=== PATIENT | male | born 1940 | race Caucasian/White ===

== ENCOUNTER → 2018-07-21 | Outpatient (CLI) | payer OTHER ==
[~2018-07-21] MED LIST: ASPI81TA28 PO; B-COCAP20 PO; LPT20 PO; THIA50TA3 PO
== END | disposition home or self-care (01) ==
LOC: C.LAB 17:43
DX: Z02.83 Encounter for blood-alcohol and blood-drug test (principal)

== ENCOUNTER 2022-01-22 20:04 | Inpatient (IN) ==
[2022-01-22] MEDS ORDERED: SODIUM CHLORIDE 0.9% 1000ML 1,000 ML IV STA (20:33)
[2022-01-22] MEDS ORDERED: ONDANSETRON INJ 2 MG/ML 2 ML VIAL IV STA (20:33)
[2022-01-22] MEDS ORDERED: MoRPHine SULFATE 4 MG/ML 1 ML CARP\\VIAL IV PRN (20:33)
--- NOTE | 2022-01-22 20:55 | Emergency Department Note ---
Impression & Plan Acute left flank pain ED Provider Note NAME: MARY VILLEGAS AGE: 81 SEX: M : 1940 ARRIVES VIA: Walk-In INFORMANT: Patient, the patient's significant other ED PROVIDER(S): Terence Dimas DO CHIEF COMPLAINT: Back pain HPI: The patient is an 81-year-old male who presented to the emergency department with his significant other for evaluation of back pain. The patient states he started having worsening back pain this morning. He was seen in our facility this morning. The patient had a work-up which included laboratory studies as well as radiographic studies. The patient states he has a Lidoderm patch on. He has been taking his outpatient medication. He has had very severe pain especially over the last 2 hours. The patient's not been seen by his primary care physician for the symptoms. He denies having any recent trauma. He denies having any hematuria. He states the pain does come up into his middle back but mostly located in his lower back. He denies having any abdominal pain. He denies having any testicular pain. He denies having any chest pain. He states at times the pain will come up underneath his rib cage. ROS: See above HPI for pertinent positives & negatives. A total of 10 systems reviewed and were otherwise negative. PAST MEDICAL HISTORY: See Below PAST SURGICAL HISTORY: See Below FAMILY HISTORY: See Below SOCIAL HISTORY: See Below HOME MEDICATIONS: See Below ALLERGIES: See Below VITALS: See Below PHYSICAL EXAMINATION: GENERAL: The patient is awake and alert. The patient is very anxious appearing and appears to be in significant pain. EYES: The conjunctivae are clear. The pupils are round and reactive. EARS, NOSE, MOUTH AND THROAT: The nose is without any evidence of any deformity. NECK: The neck is nontender and supple. RESPIRATORY: Normal respiratory effort is noted there is no evidence of wheezing rhonchi or rales CARDIOVASCULAR: Regular rate and rhythm noted there no murmurs rubs or gallops normal S1 normal S2. GASTROINTESTINAL: The abdomen is soft. Abdomen is nontender. BACK: No midline tenderness was noted. Range of motion was intact but elicits very severe pain. The patient has palpable tenderness over the left flank. Th ere is no signs of rash. MUSCULOSKELETAL/EXTREMITIES: There is no evidence of gross deformity full range of motion is noted in the hips and shoulders. SKIN: Pedal edema was noted bilaterally. Skin was warm and dry. NEUROLOGIC: Patient is awake alert and oriented x3. Strength was symmetric in both lower extremities. MEDICAL DECISION MAKING: The patient is an 81-year-old male who presented to the emergency department for an evaluation of left flank pain. The patient presented to our emergency department earlier for similar complaints. He was able to be discharged to home but returned tonight because of ongoing and worsening pain. The patient was treated with pain medication in the emergency department. I discussed the patient's laboratory and radiographic studies with him. Ultimately he was not significantly improved. Any attempts to try to ambulate the patient had very severe pain again. For this reason I [facility] this [facility] have agreed to evaluate the patient in the emergency department for further management and disposition. The patient does appear to have more musculoskeletal pain. He had no abdominal tenderness on physical exam. I did review the patient's earlier radiographic studies including CT the abdomen and pelvis. Triage Nursing notes reviewed. Prior medical records reviewed Vital Signs: reviewed and remarkable for no significant abnormalities Differential diagnosis: Musculoskeletal, disc herniation, fracture, metastatic disease, cord compression, discitis, sciatica, cauda equina, infection, aortic disease, renal colic, gastrointestinal, as well as other pathologies. ER treatment provided: See below Diagnostics interpreted by me: ECG: EKG was obtained in the emergency department. My interpretation is normal sinus rhythm at 87 bpm. There is no ectopy. There was no acute ST segment abnormalities noted. This was compared to a tracing from May 201999. No significant changes were noted. Cardiac Monitoring: An order was placed for continuous cardiac monitoring. The monitor shows a rate of 88 bpm with sinus rhythm. Laboratory studies: As stated above and show below. Imaging studies: See below Consultation(s): I discussed this case with Dr. Alexander who is [facility]. Past Med/Surg History Medical History HLD (hyperlipidemia) Surgical History No pertinent past surgical history Social History Smoking Status: Current some day smoker Tobacco Type: Cigarettes Hx Alcohol Use: No Hx Substance Use: No Preferred Language: Slovenian Current Living Situation: Spouse current occupational status: retired Feels Safe at Home: Yes Allergies Allergies Allergy/AdvReac Type Severity Reaction Status Date / Time buckwheat Allergy Severe throat Verified 01/22/22 09:35 swells Penicillins Allergy Unknown hives Unverified 01/22/22 09:35 Home Meds Home Medications Medication Instructions Recorded Confirmed aspirin 81 mg tablet,delayed 81 mg PO QAM 01/22/22 01/22/22 release atorvastatin 20 mg tablet 20 mg PO QAM 01/22/22 01/22/22 umeclidinium 62.5 mcg-vilanterol 1 inh INHALATION HS 01/22/22 01/22/22 25 mcg/actuation powdr for inhalation (Anoro Ellipta) Previous Rx's Medication Instructions Recorded lidocaine 5 % topical patch 1 patch TOP DAILY PRN #15 ea 01/22/22 prednisone 20 mg tablet See Rx Instructions .ROUTE 01/22/22 .COMPLEX 4 Days #6 tab Results & Data (ED) Vital Signs Vital Signs - 24 hr 01/22/22 20:07 01/22/22 20:26 01/22/22 20:55 Temperature 36.3 C L Temperature Source Temporal Artery Scan Pulse Rate 99 H 88 Pulse Rate [Apical] 98 H Pulse Rhythm Regular Pulse Rhythm [Apical] Regular Pulse Strength [Apical] Normal Respiratory Rate 18 16 18 Respiratory Effort / Characteristics Non-Labored Respiratory Depth Normal Respiratory Pattern Regular Blood Pressure 129/67 Blood Pressure [Left Arm] 107/73 Blood Pressure Mean 87 Blood Pressure Mean [Left Arm] 84 Blood Pressure Position Sitting Blood Pressure Position [Left Arm] Lying Pulse Oximetry 99 94 91 Oxygen Delivery Method Room Air Room Air Room Air Sepsis Recent Fever Within 48 Hours No Sepsis New/Unexplained Change in Mental Status No Sepsis Action Taken by Nursing No Action Required Home Medications Current Medication List: was personally reviewed by me Laboratory Data Attestation: I reviewed the patient's lab results. Result diagrams: 01/22/22 20:57 01/22/22 20:57 Lab Results 01/22/22 01/22/22 01/22/22 Range/Units 20:57 20:57 20:57 WBC 5.78 (4.8-10.8) K/uL RBC 3.99 L (4.7-6.1) M/uL Hgb 13.9 L (14.0-18.0) g/dL Hct 39.1 L (42-52) % MCV 98.0 (80-100) fL MCH 34.8 H (25-34) pg MCHC 35.5 (32-36) g/dL RDW Std Deviation 45.6 (36.4-46.3) fL RDW Coeff of Manpreet 12.7 (11.5-14.5) % Plt Count 239 (130-400) K/uL MPV 8.9 (7.4-10.4) fL Immature Gran % (Auto) 0.2 % Neut % (Auto) 88.5 % Lymph % (Auto) 9.9 % [place] % (Auto) 1.4 % Eos % (Auto) 0.0 % Baso % (Auto) 0.0 % Neut # (Auto) 5.12 (1.4-6.5) K/uL Lymph # (Auto) 0.57 L (1.2-3.4) K/uL [place] # (Auto) 0.08 L (0.11-0.59) K/uL Eos # (Auto) 0.00 (0-0.5) K/uL Baso # (Auto) 0.00 (0-0.2) K/uL Immature Gran # (Auto) 0.01 (0.00-0.02) K/uL PT 9.9 (9.0-12.0) Seconds INR 1.0 (0.9-1.1) APTT 20.5 L (21.0-31.0) Seconds PTT Ratio 0.8 Sodium 136 (136-145) mmol/L Potassium 4.4 (3.5-5.1) mmol/L Chloride 106 (98-107) mmol/L Carbon Dioxide 20 L (21-32) mmol/L Anion Gap 10 (3-11) BUN 19 (6-23) mg/dl Creatinine 1.23 (0.6-1.4) mg/dl Est Cr Clr Drug Dosing 48.5 ml/min Est GFR ( Amer) 63.9 ml/min Est GFR (Non-Af Amer) 55.1 ml/min BUN/Creatinine Ratio 15.4 (10-20) Glucose 151 H (70-99(Fasting)) mg/dl Calcium 9.1 (8.5-10.1) mg/dl Total Bilirubin 0.4 D (0.2-1.0) mg/dl AST 17 (13-39) U/L ALT 14 (7-52) U/L Alkaline Phosphatase 73 (34-104) U/L Troponin I < 0.03 (0-0.04) ng/ml Total Protein 6.5 (6.0-8.3) gm/dl Albumin 3.7 (3.4-5.0) gm/dl Globulin 2.8 (2.5-4.0) gm/dl Albumin/Globulin Ratio 1.3 (0.9-2) Lipase 32 (11-82) U/L Administered Medications Morphine Sulfate (Morphine Sulfate 4 Mg/Ml 1 Ml Carp\Vial) 4 mg IV Q15M PRN PRN Reason: Pain Stop: 02/05/22 20:32 Last Admin: 01/22/22 21:01 Dose: 4 mg Documented by: [id number] Discontinued Medications Sodium Chloride (Nss 1000ml) 1,000 mls @ 999 mls/hr IV .Q1H1M STA Stop: 01/22/22 21:33 Last Infusion: 01/22/22 22:10 Dose: 0 mls/hr Documented by: [id number] Admin: 01/22/22 21:01 Dose: 999 mls/hr Documented by: [id number] Ondansetron HCl (Ondansetron Inj 2 Mg/Ml 2 Ml Vial) 4 mg IV NOW STA Stop: 01/22/22 20:34 Last Admin: 01/22/22 21:01 Dose: 4 mg Documented by: [id number] Imaging Data Radiologist's Impression: Chest X-Ray 01/22/22 20:33 XR chest 1V portable HISTORY: Atypical chest pain. COMPARISON: Chest CT 09/19/2016. FINDINGS: No pneumothorax. No pleural effusions. The heart is normal in size. There are low lung volumes. The upper lung zones are clear. No evidence for pulmonary edema. Mild interstitial thickening at the lung bases. This is most pronounced medially. This is similar to the prior chest CT in therefore may be chronic. There is a mildly displaced left lateral eighth rib fracture. Degenerative changes noted within the shoulders. There is superior subluxation of the left humeral head suggesting chronic rotator cuff injury. IMPRESSION: 1. Mildly displaced lateral eighth rib fracture. No pneumothorax. 2. Mild interstitial thickening at the lung bases. This is likely chronic. A low-grade interstitial pneumonitis could also have a similar appearance in the appropriate clinical setting. ACT 112: Negative or not required by law. Electronically signed by: John Kidd M.D. 01/22/2022 9:06 PM KUB X-Ray 01/22/22 20:33 KUB HISTORY: Generalized abdominal pain COMPARISON: Abdomen and pelvis CT 01/22/2022. FINDINGS: The bowel gas pattern is unremarkable. There are no dilated loops of small bowel to suggest an obstruction. No renal calculi. No ureteral calculi. No pneumoperitoneum or pneumatosis. Contrast within the bladder from the prior CT examination. There are small bladder diverticula present. Vascular calcifications are noted. IMPRESSION: No evidence for bowel obstruction. ACT 112: Negative or not required by law. Electronically signed by: John Kidd M.D. 01/22/2022 9:03 PM Discharge Plan Visit Data Chief Complaint: Abdominal Pain Stated Complaint: SEVERE PAIN IN LT SIDE OF ABD ED Provider: Terence Dimas Discharge Problem: Acute left flank pain Patient Disposition: Being Evaluated by Hospitalist Forms Stand Alone Forms: My [facility] Prescriptions Prescriptions: No Action atorvastatin 20 mg tablet 20 mg PO QAM RF: 0 aspirin [Aspir-81] 81 mg Tablet,Delayed Release (Dr/Ec) 81 mg PO QAM RF: 0 Anoro Ellipta 62.5-25 mcg/actuation blister with device 1 inh INHALATION HS RF: 0 lidocaine 5 % adhesive patch,medicated 1 patch TOP DAILY PRN (Reason: pain) Qty: 15 RF: 0 prednisone 20 mg tablet See Rx Instructions .ROUTE .COMPLEX 4 Days Qty: 6 RF: 0 Referrals Referrals: Watson Bowen MD [Primary Care Provider] -
--- NOTE | 2022-01-22 21:04 | XRay Report ---
KUB HISTORY: Generalized abdominal pain COMPARISON: Abdomen and pelvis CT 01/22/2022. FINDINGS: The bowel gas pattern is unremarkable. There are no dilated loops of small bowel to suggest an obstruction. No renal calculi. No ureteral calculi. No pneumoperitoneum or pneumatosis. Contrast within the bladder from the prior CT examination. There are small bladder diverticula present. Vascu lar calcifications are noted. IMPRESSION: No evidence for bowel obstruction. ACT 112: Negative or not required by law. Electronically signed by: John Kidd M.D. 01/22/2022 9:03 PM
--- NOTE | 2022-01-22 21:07 | XRay Report ---
XR chest 1V portable HISTORY: Atypical chest pain. COMPARISON: Chest CT 09/19/2016. FINDINGS: No pneumothorax. No pleural effusions. The heart is normal in size. There are low lung volu mes. The upper lung zones are clear. No evidence for pulmonary edema. Mild interstitial thickening at the lung bases. This is most pronounced medially. This is similar to the prior chest CT in therefore may be chronic. There is a mildly displaced left lateral eighth rib fracture. Degenerative changes n oted within the shoulders. There is superior subluxation of the left humeral head suggesting chronic rotator cuff injury. IMPRESSION: 1. Mildly displaced lateral eighth rib fracture. No pneumothorax. 2. Mild interstitial thickening at the lung bases. This is likely chronic. A low-grade interstitial p neumonitis could also have a similar appearance in the appropriate clinical setting. ACT 112: Negative or not required by law. Electronically signed by: John Kidd M.D. 01/22/2022 9:06 PM
[2022-01-22 21:18] LABS: Hematocrit (blood only) 39.1 % (42-52); Hemoglobin 13.9 g/dL (14.0-18.0); Immature Granulocytes # (auto) 0.01 K/uL (0.00-0.02); Immature Granulocytes % (auto) 0.2 %; Lymphocytes # (auto) 0.57 K/uL (1.2-3.4); Lymphocytes % (auto) 9.9 %; Mean Corpuscular Hemoglobin 34.8 pg (25-34); Mean Corpuscular Hgb Conc 35.5 g/dL (32-36); Mean Platelet Volume 8.9 fL (7.4-10.4); Monocytes # (auto) 0.08 K/uL (0.11-0.59); Monocytes % (auto) 1.4 %; Neutrophils # (auto) 5.12 K/uL (1.4-6.5); Neutrophils % (auto) 88.5 %; Platelet Count 239 K/uL (130-400); RDW Coefficient of Variation 12.7 % (11.5-14.5); RDW Standard Deviation 45.6 fL (36.4-46.3); Red Blood Count 3.99 M/uL (4.7-6.1); White Blood Count 5.78 K/uL (4.8-10.8)
[2022-01-22 21:30] LABS: Partial Thromboplastin Ratio 0.8; Partial Thromboplastin Time 20.5 Seconds (21.0-31.0); Prothrombin Time 9.9 Seconds (9.0-12.0)
[2022-01-22 21:37] LABS: Alanine Aminotransferase 14 U/L (7-52); Albumin Globulin Ratio 1.3 (0.9-2); Albumin Level 3.7 gm/dl (3.4-5.0); Alkaline Phosphatase 73 U/L (34-104); Anion Gap 10 (3-11); Aspartate Aminotransferase 17 U/L (13-39); BUN Creatinine Ratio 15.4 (10-20); Bilirubin,Total 0.4 mg/dl (0.2-1.0); Blood Urea Nitrogen 19 mg/dl (6-23); Calcium 9.1 mg/dl (8.5-10.1); Carbon Dioxide 20 mmol/L (21-32); Chloride 106 mmol/L (98-107); Creatinine Clr Calc Pharmacy 48.5 ml/min; Est GFR (African American) 63.9 ml/min; Est GFR (Non-African American) 55.1 ml/min; Globulin 2.8 gm/dl (2.5-4.0); Glucose 151 mg/dl (70-99(Fasting)); Lipase 32 U/L (11-82); Potassium 4.4 mmol/L (3.5-5.1); Sodium 136 mmol/L (136-145); Total Protein 6.5 gm/dl (6.0-8.3)
[2022-01-22 21:39] LABS: Troponin I < 0.03 ng/ml (0-0.04)
[2022-01-22 23:08] LABS: Appearance Urine Clear (Clear); Bilirubin Urine Negative (Negative); Blood Urine Negative (Negative); Color Urine Yellow; Glucose Urine UA Negative (Negative); Ketones Urine Trace (Negative); Leukocyte Esterase Urine Negative (Negative); Nitrite Urine Negative (Negative); Protein Urine Negative (Negative); Specific Gravity Urine > 1.045 (1.000-1.030); Urobilinogen Urine Negative (Negative); pH Urine 5.5 (4.5-7.5)
[2022-01-23] MEDS ORDERED: KETOROLAC TROMETHAMINE 15 MG/ML VIAL IV ONE (00:12)
--- NOTE | 2022-01-23 00:12 | History & Physical Report ---
Date of Service January 23, 2022 Assessment & Plan (1) Left rib fracture: Plan: COPD, baseline wheezing on exam hyperlipidemia on statin Rx Steroid-induced hyperglycemia rule out DM Ongoing tobacco abuse OBS GMF Analgesia Lidoderm patch on left rib fracture Incentive spirometry Check hemoglobin A1c DC steroid course from ER visit yesterday as left-sided flank pain complaints not caused by spinal pathology. Nicotine patch as needed DVT prophylaxis per Lovenox subcu Full code Text document was generated using hulu voice recognition software. It may contain grammatical or spelling errors. Kindly contact undersigned for clarification of any documentation item in question. History of Present Illness Chief Complaint: Pain under the ribs going to the back Primary Care Provider: Watson Bowen MD History obtained from patient and records. Medical history significant for COPD, hyperlipidemia, ongoing tobacco abuse. 2 nights ago, patient noted sudden onset achy left-sided under the rib pain going to the back somewhat pleuritic. No leg radiation/weakness as per patient.Usual smoker's cough symptoms. No recollection of recent trauma. Patient seen at the ER yesterday morning. CT abdomen pelvis unremarkable. Patient discharged on lidocaine patch and prednisone course for acute left flank pain. Patient returned to ER for worsening symptoms. Intractable discomfort at the ER. 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 Allergies Allergy/AdvReac Type Severity Reaction Status Date / Time buckwheat Allergy Severe throat Verified 01/22/22 09:35 swells Penicillins Allergy Unknown hives Unverified 01/22/22 09:35 Home Medications Medication Instructions Recorded Confirmed Type aspirin 81 mg tablet,delayed 81 mg PO QAM 01/22/22 01/22/22 History release atorvastatin 20 mg tablet 20 mg PO QAM 01/22/22 01/22/22 History lidocaine 5 % topical patch 1 patch TOP DAILY PRN #15 ea 01/22/22 01/22/22 Rx prednisone 20 mg tablet See Rx Instructions .ROUTE 01/22/22 01/22/22 Rx .COMPLEX 4 Days #6 tab umeclidinium 62.5 mcg-vilanterol 1 inh INHALATION HS 01/22/22 01/22/22 History 25 mcg/actuation powdr for inhalation (Anoro Ellipta) Past Med/Surg History Medical History HLD (hyperlipidemia) Surgical History No pertinent past surgical history Social History Smoking Status: Current every day smoker Tobacco Type: Cigarettes Second Hand Exposure: Yes; Do You Dip or Chew Tobacco: No; Tobacco Cessation Education Requested by Patient: Yes Hx Alcohol Use: Yes Alcohol type: beer Hx Substance Use: No Preferred Language: [place]an Communication Ability: [facility] Signal Repairer Required: No Beliefs That Will Affect Care: None Current Living Situation: Spouse current occupational status: retired Other Information That Helps Us Care for You: No Feels Safe at Home: Yes Safety Concerns: Feels Safe At This Time Assistive Devices: Cane Review of Systems Review of Systems: As per HPI, all 10 systems reviewed, all other ROS negative Physical Exam Physical Exam: GENERAL: uncomfortable, obese, hard of hearing, no respiratory distress SKIN: Normal color, warm HEENT: [place] palpebral conjunctivae, no ptosis, moist buccal mucosa NECK : Supple, no tenderness CHEST : Decreased breath sounds, diffuse expiratory wheezes, left lateral chest wall tenderness HEART : RRR, no obvious murmurs ABDOMEN: Some distention, nontender EXTREMITIES : No LE swelling/tenderness, no other conspicuous deformities noted NEUROLOGIC : Coherent, no facial asymmetry, hard of hearing, no other gross focality Results & Data Results & Data ([facility]) Vital Signs (Past 12 Hours) Vital Signs Temp Pulse Pulse Resp BP BP Pulse Ox 01/22/22 23:29 94 H 18 138/77 91 01/22/22 22:04 18 98 01/22/22 20:55 88 18 91 01/22/22 20:26 98 H 16 107/73 94 01/22/22 20:07 36.3 C L 99 H 18 129/67 99 Laboratory Results Laboratory Results WBC 5.78 K/uL (4.8-10.8) 01/22/22 20:57 RBC 3.99 M/uL (4.7-6.1) L 01/22/22 20:57 Hgb 13.9 g/dL (14.0-18.0) L 01/22/22 20:57 Hct 39.1 % (42-52) L 01/22/22 20:57 MCV 98.0 fL (80-100) 01/22/22: MCH 34.8 pg (25-34) H 01/22/22: MCHC 35.5 g/dL (32-36) 01/22/22:57 RDW Std Deviation 45.6 fL (36.4-46.3) 01/22/22: RDW Coeff of Manpreet 12.7 % (11.5-14.5) 01/22/22: Plt Count 239 K/uL (130-400) 01/22/22 20: MPV 8.9 fL (7.4-10.4) 01/22/22: Immature Gran % (Auto) 0.2 % 01/22/22: Neut % (Auto) 88.5 % 01/22/22: Lymph % (Auto) 9.9 % 01/22/22: [place] % (Auto) 1.4 % 01/22/22: Eos % (Auto) 0.0 % 01/22/22:57 Baso % (Auto) 0.0 % 01/22/22:57 Neut # (Auto) 5.12 K/uL (1.4-6.5) 01/22/22: Lymph # (Auto) 0.57 K/uL (1.2-3.4) L 01/22/22:57 [place] # (Auto) 0.08 K/uL (0.11-0.59) L 01/22/22: Eos # (Auto) 0.00 K/uL (0-0.5) 01/22/22:57 Baso # (Auto) 0.00 K/uL (0-0.2) 01/22/22: Immature Gran # (Auto) 0.01 K/uL (0.00-0.02) 01/22/22:57 PT 9.9 Seconds (9.0-12.0) 01/22/22 20:57 INR 1.0 (0.9-1.1) 01/22/22: APTT 20.5 Seconds (21.0-31.0) L 01/22/22 20:57 PTT Ratio 0.8 01/22/22 20:57 Sodium 136 mmol/L (136-145) 01/22/22 20:57 Potassium 4.4 mmol/L (3.5-5.1) 01/22/22 20:57 Chloride 106 mmol/L (98-107) 01/22/22 20:57 Carbon Dioxide 20 mmol/L (21-32) L 01/22/22 20:57 Anion Gap 10 (3-11) 01/22/22 20:57 BUN 19 mg/dl (6-23) 01/22/22 20:57 Creatinine 1.23 mg/dl (0.6-1.4) 01/22/22 20:57 Est Cr Clr Drug Dosing 48.5 ml/min 01/22/22 20:57 Est GFR ( Amer) 63.9 ml/min 01/22/22 20:57 Est GFR (Non-Af Amer) 55.1 ml/min 01/22/22 20:57 BUN/Creatinine Ratio 15.4 (10-20) 01/22/22 20:57 Glucose 151 mg/dl (70-99(Fasting)) H 01/22/22 20:57 Calcium 9.1 mg/dl (8.5-10.1) 01/22/22 20:57 Total Bilirubin 0.4 mg/dl (0.2-1.0) D 01/22/22 20:57 AST 17 U/L (13-39) 01/22/22 20:57 ALT 14 U/L (7-52) 01/22/22 20:57 Alkaline Phosphatase 73 U/L (34-104) 01/22/22 20:57 Troponin I < 0.03 ng/ml (0-0.04) 01/22/22 20:57 Total Protein 6.5 gm/dl (6.0-8.3) 01/22/22 20:57 Albumin 3.7 gm/dl (3.4-5.0) 01/22/22 20:57 Globulin 2.8 gm/dl (2.5-4.0) 01/22/22 20:57 Albumin/Globulin Ratio 1.3 (0.9-2) 01/22/22 20:57 Lipase 32 U/L (11-82) 01/22/22 20:57 Urine Color Yellow 01/22/22 22:07 Urine Appearance Clear (Clear) 01/22/22 22:07 Urine pH 5.5 (4.5-7.5) 01/22/22 22:07 Ur Specific [place] > 1.045 (1.000-1.030) H 01/22/22 22:07 Urine Protein Negative (Negative) 01/22/22 22:07 Urine Glucose (UA) Negative (Negative) 01/22/22 22:07 Urine Ketones Trace (Negative) H 01/22/22 22:07 Urine Blood Negative (Negative) 01/22/22 22:07 Urine Nitrite Negative (Negative) 01/22/22 22:07 Urine Bilirubin Negative (Negative) 01/22/22 22:07 Urine Urobilinogen Negative (Negative) 01/22/22 22:07 Ur Leukocyte Esterase Negative (Negative) 01/22/22 22:07 SARS-CoV-2, RNA, NAAT NEGATIVE (NEGATIVE) 01/22/22 22:57 Impressions Chest X-Ray 01/22/22 20:33 XR chest 1V portable HISTORY: Atypical chest pain. COMPARISON: Chest CT 09/19/2016. FINDINGS: No pneumothorax. No pleural effusions. The heart is normal in size. There are low lung volumes. The upper lung zones are clear. No evidence for pulmonary edema. Mild interstitial thickening at the lung bases. This is most pronounced medially. This is similar to the prior chest CT in therefore may be chronic. There is a mildly displaced left lateral eighth rib fracture. Degenerative changes noted within the shoulders. There is superior subluxation of the left humeral head suggesting chronic rotator cuff injury. IMPRESSION: 1. Mildly displaced lateral eighth rib fracture. No pneumothorax. 2. Mild interstitial thickening at the lung bases. This is likely chronic. A low-grade interstitial pneumonitis could also have a similar appearance in the appropriate clinical setting. ACT 112: Negative or not required by law. Electronically signed by: John Kidd M.D. 01/22/2022 9:06 PM KUB X-Ray 01/22/22 20:33 KUB HISTORY: Generalized abdominal pain COMPARISON: Abdomen and pelvis CT 01/22/2022. FINDINGS: The bowel gas pattern is unremarkable. There are no dilated loops of small bowel to suggest an obstruction. No renal calculi. No ureteral calculi. No pneumoperitoneum or pneumatosis. Contrast within the bladder from the prior CT examination. There are small bladder diverticula present. Vascular calcifications are noted. IMPRESSION: No evidence for bowel obstruction. ACT 112: Negative or not required by law. Electronically signed by: John Kidd M.D. 01/22/2022 9:03 PM Diagnostic Findings EKG as per my interpretation rate 85, NSR, LAD, LAFB, no ischemia
[2022-01-23] MEDS ORDERED: KETOROLAC TROMETHAMINE 15 MG/ML VIAL ONE (00:15)
[2022-01-23] MEDS ORDERED: LIDOCAINE 5% 1 PATCH TD SCH (00:30)
[2022-01-23] MEDS ORDERED: MoRPHine SULFATE 4 MG/ML 1 ML CARP\\VIAL IV PRN (00:34)
[2022-01-23] MEDS ORDERED: PROMETHAZINE HCL 12.5 MG in SODIUM CHLORIDE 0.9% 50 ML IV PRN (00:34)
[2022-01-23] MEDS ORDERED: ACETAMINOPHEN 325 MG TAB PO PRN (00:39)
[2022-01-23] MEDS ORDERED: LIDOCAINE 5% 1 PATCH TD ONE (00:41)
[2022-01-23] MEDS ORDERED: IPRATROPIUM BROMIDE NEB SOLN 0.02% 2.5 ML VIAL INH PRN (03:02)
[2022-01-23] MEDS ORDERED: LEVALBUTEROL 1.25MG/0.5ML NEB INH PRN (03:02)
[2022-01-23] MEDS ORDERED: XOPENEX/ATROVENT 1.25mg/0.5MG NEB COMBO NEB PRN (03:02)
[2022-01-23 03:39] LABS: Basophils # (auto) 0.01 K/uL (0-0.2); Basophils % (auto) 0.1 %; Hematocrit (blood only) 38.1 % (42-52); Hemoglobin 13.1 g/dL (14.0-18.0); Immature Granulocytes # (auto) 0.02 K/uL (0.00-0.02); Immature Granulocytes % (auto) 0.2 %; Lymphocytes # (auto) 0.99 K/uL (1.2-3.4); Lymphocytes % (auto) 9.8 %; Mean Corpuscular Hemoglobin 33.9 pg (25-34); Mean Corpuscular Hgb Conc 34.4 g/dL (32-36); Mean Corpuscular Volume 98.7 fL (80-100); Mean Platelet Volume 8.9 fL (7.4-10.4); Monocytes # (auto) 0.66 K/uL (0.11-0.59); Monocytes % (auto) 6.5 %; Neutrophils # (auto) 8.46 K/uL (1.4-6.5); Neutrophils % (auto) 83.4 %; Platelet Count 211 K/uL (130-400); RDW Coefficient of Variation 12.8 % (11.5-14.5); RDW Standard Deviation 46.1 fL (36.4-46.3); Red Blood Count 3.86 M/uL (4.7-6.1); White Blood Count 10.14 K/uL (4.8-10.8)
[2022-01-23 04:01] LABS: Calcium 8.7 mg/dl (8.5-10.1); Creatinine Clr Calc Pharmacy 62.5 ml/min; Est GFR (African American) 77.3 ml/min; Est GFR (Non-African American) 66.7 ml/min; Potassium 4.5 mmol/L (3.5-5.1)
[2022-01-23] MEDS ORDERED: XOPENEX/ATROVENT 1.25mg/0.5MG NEB COMBO NEB STA (04:46)
[2022-01-23] MEDS ORDERED: IPRATROPIUM BROMIDE NEB SOLN 0.02% 2.5 ML VIAL INH STA (05:05)
[2022-01-23] MEDS ORDERED: LEVALBUTEROL 1.25MG/0.5ML NEB INH STA (05:05)
[2022-01-23 07:02] LABS: Estimated Average Glucose 117 mg/dl; Hemoglobin A1C 5.7 % (4.5-5.6)
[2022-01-23] MEDS: ATORVASTATIN 20 MG TAB PO SCH (08:13)
[2022-01-23] MEDS: ASPIRIN 81 MG ECTAB PO SCH (08:13)
[2022-01-23] MEDS: ENOXAPARIN INJ 40 MG/0.4 ML SYR SQ SCH (08:13)
--- NOTE | 2022-01-23 10:28 | Electrocardiogram Report ---
Test Reason : Blood Pressure : / mmHG Vent. Rate : 087 BPM Atrial Rate : 087 BPM P-R Int : 176 ms QRS Dur : 090 ms QT Int : 352 ms P-R-T Axes : 092 -13 040 degrees QTc Int : 423 ms Normal sinus rhythm Normal ECG When compared with ECG of 20-MAY-2000 11:15, No significant change was found Confirmed by Terence Ortiz ([id number]) on 01/23/2022 10:28:14 AM Referred By: REFERRED SELF Confirmed By:Terence Ortiz
[2022-01-23] MEDS: ACETAMINOPHEN 500 MG TAB PO SCH ×2 (13:06→22:17)
[2022-01-23] MEDS: oxyCODONE HCL IR 5 MG TAB (IMMEDIATE RELEASE) PO PRN ×2 (13:06→17:03)
--- NOTE | 2022-01-23 14:28 | Hospitalist Progress Note ---
Date of Service January 23, 2022 Assessment & Plan (1) Left rib fracture: Plan: Chest pain secondary to left eighth rib fracture that is mildly displaced. Continue scheduled Tylenol 1000 mg every 8 hours and oxycodone as needed. Lidocaine patch is not working so we will DC this now. Given alcohol withdrawal we will also start gabapentin 300 mg p.o. twice daily which may alleviate some of the need for narcotic therapy and help with pain control Continue supportive care. (2) Alcohol abuse: Plan: Heavy alcohol user reporting 5-6 drinks every other day. He is tremulous and cannot seem to get comfortable sitting down and standing up and changing positions frequently. Will give 1 dose of Ativan IV 0.5 mg and follow with alcohol withdrawal sliding scale. Daily thiamine and folate ordered. (3) Alcohol withdrawal: Plan: Ativan as needed (4) Smoking: Plan: Nicotine patch as needed, counseled to quit and is in contemplative phase. (5) COPD (chronic obstructive pulmonary disease): Plan: Chronic, stable, no acute wheezing. Of note steroids were given to him from the ER but have been stopped. Continue Anoro Ellipta (6) DVT prophylaxis: Plan: Lovenox Full code Disposition-to home when pain is more controlled. Margaret Padron DO [facility] hospitalist Admission and Anticipated Discharge Date Admission Date: January 23, 2022 Subjective 81 yo M presented with acute left chest wall pain secondary to a displaced lateral eighth rib fracture. No pneumothorax was evident on chest imaging. Patient reports having 6 brennen and Cokes and tripped over a litter box when he went outside to "take a leak" Patient reports drinking alcohol every other day on average Patient is tremulous and appears slightly anxious and pain is uncontrolled. He recently had 5 mg of oxycodone and 1000 mg of Tylenol, reporting some improvement in the last hour He is visibly unable to get comfortable He reports lidocaine patch is not helping him. Review of Systems 2 Review of Systems: All other systems reviewed and negative except as indicated above. Physical Exam Physical Exam: CONSTITUTIONAL: WNWD, vitals as above, in moderate distress with movement. EYES: normal conjunctivae, no scleral icterus, ENT: external ear and nose normal,MMM NECK: trachea midline, RESPIRATORY: clear to auscultation bilaterally, no crackles, rales or wheezes, normal respiratory effort CARDIOVASCULAR: regular rate and rhythm, S1 and 2 heard without murmurs, gallops or rubs, no JVD, no peripheral edema, CHEST: inspection of chest was normal GASTROINTESTINAL: soft, nontender, ND, no guarding MUSCULOSKELETAL: strength 5/5 throughout, head is normocephalic and atraumatic, chest wall tenderness on the left lateral side to palpation. SKIN: warm and dry, NEUROLOGIC: CN 2-12 grossly intact, normal cognition, normal speech, no tremor PSYCHIATRIC: alert cooperative and oriented to person, place and time. Results & Data Results & Data ([facility]) Vital Signs (Past 12 Hours) Vital Signs Temp Pulse Pulse Pulse Resp BP BP 01/23/22 08:00 36.7 C 84 18 128/64 01/23/22 05:49 81 20 01/23/22 03:00 36.5 C 80 80 18 132/80 01/23/22 02:44 36.7 C 91 H 20 114/81 Pulse Ox 01/23/22 08:00 90 01/23/22 05:49 94 01/23/22 03:00 91 01/23/22 02:44 95 Laboratory Results Short CBC 01/22/22 01/23/22 Range/Units 20:57 03:20 WBC 5.78 10.14 (4.8-10.8) K/uL Hgb 13.9 L 13.1 L (14.0-18.0) g/dL Hct 39.1 L 38.1 L (42-52) % Plt Count 239 211 (130-400) K/uL BMP 01/22/22 01/23/22 20:57 03:20 Sodium 136 138 Potassium 4.4 4.5 Chloride 106 108 H Carbon Dioxide 20 L 22 BUN 19 21 Creatinine 1.23 1.05 Glucose 151 H 125 H Calcium 9.1 8.7 Cardiac Enzymes 01/22/22 Range/Units 20:57 Troponin I < 0.03 (0-0.04) ng/ml Liver Function 01/22/22 Range/Units 20:57 Total Bilirubin 0.4 D (0.2-1.0) mg/dl AST 17 (13-39) U/L ALT 14 (7-52) U/L Alkaline Phosphatase 73 (34-104) U/L Albumin 3.7 (3.4-5.0) gm/dl Urine 01/22/22 Range/Units 22:07 Urine Color Yellow Urine Appearance Clear (Clear) Urine pH 5.5 (4.5-7.5) Ur Specific [place] > 1.045 H (1.000-1.030) Urine Protein Negative (Negative) Urine Glucose (UA) Negative (Negative) Medications Administered Current Inpatient Medications Acetaminophen (Acetaminophen 500 Mg Tab) 1,[address] [facility] Stop: 02/22/22 13:59 Last Admin: 01/23/22 13:06 Dose: 1,000 mg Documented by: Aspirin (Aspirin 81 Mg Ectab) 81 mg PO [facility] Stop: 02/22/22 08:59 Last Admin: 01/23/22 08:13 Dose: 81 mg Documented by: Atorvastatin Calcium (Atorvastatin 20 Mg Tab) 20 mg PO [facility] Stop: 02/22/22 08:59 Last Admin: 01/23/22 08:13 Dose: 20 mg Documented by: Enoxaparin Sodium (Enoxaparin Inj 40 Mg/0.4 Ml Syr) 40 mg SQ [facility] Stop: 02/22/22 08:59 Last Admin: 01/23/22 08:13 Dose: 40 mg Documented by: Promethazine HCl 12.5 mg/ (Sodium Chloride) 50.5 mls @ 202 mls/hr IV Q6H PRN PRN Reason: Nausea And Vomiting Stop: 02/22/22 00:33 Ipratropium [place] (Ipratropium [place] Neb Soln 0.02% 2.5 Ml Vial) 0.5 mg INH Q4H PRN PRN Reason: SOB, wheezing Stop: 02/22/22 03:01 Levalbuterol HCl (Levalbuterol 1.25mg/0.5ml Neb) 1.25 mg INH Q4H PRN PRN Reason: SOB, wheezing Stop: 02/22/22 03:01 Lidocaine (Lidocaine 5% 1 Patch) 1 patch TD [facility] Stop: 02/22/22 00:29 Last Admin: 01/23/22 01:35 Dose: 1 patch Documented by: Miscellaneous (Remove Lidoderm Patch) 1 ea N/A DAILY@2100 [facility] Stop: 02/22/22 20:59 Morphine Sulfate (Morphine Sulfate 4 Mg/Ml 1 Ml Carp\\Vial) 4 mg IV Q4H PRN PRN Reason: Pain Stop: 02/06/22 00:33 Oxycodone HCl (Oxycodone Hcl Ir 5 Mg Tab (Immediate Release)) 5 mg PO Q4H PRN PRN Reason: Pain Stop: 02/06/22 00:33 Last Admin: 01/23/22 13:06 Dose: 5 mg Documented by: Umeclidinium/Vilanterol (Umeclidinium/Vilanterol 62.5/25mcg 7 Puffs/Inhaler) 1 puffs INH HS [facility] Stop: 02/22/22 20:59
[2022-01-23] MEDS ORDERED: LORazepam 2 MG/1 ML VIAL IV STA (14:45)
[2022-01-23] MEDS ORDERED: LORazepam 1 MG TAB PO PRN (14:46)
[2022-01-23] MEDS ORDERED: THIAMINE HCL 100 MG in SYRINGE 9 ML IV ONE (14:47)
[2022-01-23] MEDS ORDERED: FOLIC ACID 1 MG in SYRINGE 9.8 ML IV ONE (14:47)
[2022-01-23] MEDS ORDERED: ATIVAN IV ALCOHOL WITHDRAWL IV PRN (20:14)
[2022-01-23] MEDS ORDERED: LORazepam 2 MG/1 ML VIAL IV PRN (20:14)
[2022-01-23] MEDS ORDERED: GABAPENTIN 1200MG ALCOHOL WITHDRAWAL LOAD PO STA (20:14)
[2022-01-23] MEDS ORDERED: GABAPENTIN 600 MG TAB PO ONE (20:30)
[2022-01-23] MEDS: LORazepam 2 MG/1 ML VIAL IV PRN ×2 (20:40→22:11)
--- NOTE | 2022-01-23 20:51 | Communication Note ---
Date of Service: January 23, 2022 Code kandy called after patient noted to be agitated, combative. Confused from alcohol withdrawal as per RN. AP PCU transfer for alcohol withdrawal
[2022-01-23] MEDS ORDERED: GABAPENTIN 300 MG CAP PO SCH (21:00)
[2022-01-23] MEDS: UMECLIDINIUM/VILANTEROL 62.5/25MCG 7 PUFFS/INHALER INH SCH (22:17)
[2022-01-23] MEDS ORDERED: cloNIDine HCL 0.1 MG TAB PO ONE (23:10)
[2022-01-23] MEDS ORDERED: LABETALOL HCL IV 5 MG/ML 20ML IV STA (23:15)
[2022-01-23] MEDS ORDERED: hydrALAZINE HCL 20 MG/ML VIAL IV STA (23:20)
[2022-01-24] MEDS ORDERED: KETOROLAC TROMETHAMINE 15 MG/ML VIAL IV ONE (01:18)
[2022-01-24] MEDS: ACETAMINOPHEN 500 MG TAB PO SCH (05:20)
[2022-01-24] MEDS ORDERED: GABAPENTIN 600 MG TAB PO SCH ×2 (06:00→22:00)
[2022-01-24 06:49] LABS: Hematocrit (blood only) 39.3 % (42-52); Hemoglobin 13.4 g/dL (14.0-18.0); Mean Corpuscular Hemoglobin 33.8 pg (25-34); Mean Corpuscular Hgb Conc 34.1 g/dL (32-36); Mean Platelet Volume 8.9 fL (7.4-10.4); Platelet Count 223 K/uL (130-400); RDW Coefficient of Variation 12.8 % (11.5-14.5); RDW Standard Deviation 46.1 fL (36.4-46.3); Red Blood Count 3.97 M/uL (4.7-6.1); White Blood Count 10.11 K/uL (4.8-10.8)
[2022-01-24 07:13] LABS: BUN Creatinine Ratio 22.6 (10-20); Calcium 8.3 mg/dl (8.5-10.1); Est GFR (African American) 95.8 ml/min; Est GFR (Non-African American) 82.7 ml/min; Magnesium 1.9 mg/dl (1.7-2.4); Phosphorus 3.1 mg/dl (2.5-4.9); Potassium 3.7 mmol/L (3.5-5.1)
[2022-01-24] MEDS: THIAMINE HCL 100 MG TAB PO SCH (08:55)
[2022-01-24] MEDS: FOLIC ACID 1 MG TAB PO SCH (08:56)
[2022-01-24] MEDS: ASPIRIN 81 MG ECTAB PO SCH (08:56)
[2022-01-24] MEDS: ENOXAPARIN INJ 40 MG/0.4 ML SYR SQ SCH (08:56)
[2022-01-24] MEDS: ATORVASTATIN 20 MG TAB PO SCH (08:56)
[2022-01-24] MEDS: LORazepam 2 MG/1 ML VIAL IV PRN ×4 (09:55→23:15)
--- NOTE | 2022-01-24 10:19 | Hospitalist Progress Note ---
Date of Service January 24, 2022 Assessment & Plan (1) Left rib fracture: Plan: Chest pain secondary to left eighth rib fracture that is mildly displaced. Continue scheduled Tylenol 1000 mg every 8 hours and hold oxycodone to avoid polypharmacy.. Lidocaine patch is not working so this was stopped. Changed gabapentin to 100mg PO TID (when more awake and able to tolerate PO) to help with pain. Titrate up weekly as needed if tolerated. (2) Alcohol abuse: Plan: Heavy alcohol user reporting 5-6 drinks every other day. He is tremulous and cannot seem to get comfortable sitting down and standing up and changing positions frequently. Currently sedated with medication because of continued combativeness and withdrawal. Daily thiamine and folate ordered. Stop gabapentin taper in this 81 yo man as the Ativan is working very well and want to avoid polypharmacy at this time. Also holding oxycodone until more awake and alert. OK with small dose of scheduled gabapentin as above. (3) Alcohol withdrawal: Plan: Ativan as needed, see plan above. (4) Smoking: Plan: Nicotine patch as needed, counseled to quit and is in contemplative phase. (5) COPD (chronic obstructive pulmonary disease): Plan: Chronic, stable, no acute wheezing. Of note steroids were given to him from the ER but have been stopped. Continue Anoro Ellipta (6) DVT prophylaxis: Plan: Lovenox Full code Disposition-to home when pain is more controlled and he is mentating well and through his withdrawal. Margaret Padron DO [facility] Hospitalist Admission and Anticipated Discharge Date Admission Date: January 23, 2022 Subjective 81 yo M presented with acute left chest wall pain secondary to a displaced lateral eighth rib fracture. No pneumothorax was evident on chest imaging. Overnight patient had a more severe withdrawal and IV ativan was given Gabapentin taper was started Patient is currently obtunded and unresponsive except to stir somewhat to sternal rub as he just received 3mg IV of Ativan for combative behavior with staff Review of Systems Review of Systems: Cannot obtain as patient is obtunded Physical Exam Physical Exam: CONSTITUTIONAL: WNWD, vitals as above,obtunded EYES: normal conjunctivae, no scleral icterus, ENT: external ear and nose normal,MMM NECK: trachea midline, RESPIRATORY: clear to auscultation bilaterally, no crackles, rales or wheezes, normal respiratory effort CARDIOVASCULAR: regular rate and rhythm, S1 and 2 heard without murmurs, gallops or rubs, no JVD, no peripheral edema, CHEST: inspection of chest was normal GASTROINTESTINAL: soft, nontender, ND, no guarding MUSCULOSKELETAL: cannot assess 2/2 mental status SKIN: warm and dry, NEUROLOGIC: obtunded Results & Data Results & Data ([facility]) Vital Signs (Past 12 Hours) Vital Signs Temp Pulse Pulse Resp BP BP Pulse Ox 01/24/22 07:54 93 01/24/22 07:43 36.6 C 68 18 136/77 95 01/24/22 07:09 68 01/24/22 02:44 35.6 C L 84 20 105/80 97 01/24/22 01:17 111/75 01/24/22 00:15 105/77 01/23/22 22:59 36.3 C L 79 20 185/101 H 97 Laboratory Results Short CBC 01/24/22 Range/Units 06:13 WBC 10.11 (4.8-10.8) K/uL Hgb 13.4 L (14.0-18.0) g/dL Hct 39.3 L (42-52) % Plt Count 223 (130-400) K/uL BMP 01/24/22 06:13 Sodium 138 Potassium 3.7 Chloride 107 Carbon Dioxide 26 BUN 19 Creatinine 0.84 Glucose 86 Calcium 8.3 L Medications Administered Current Inpatient Medications Aspirin (Aspirin 81 Mg Ectab) 81 mg [facility] Stop: 02/22/22 08:59 Last Admin: 01/24/22 08:56 Dose: 81 mg Documented by: Atorvastatin Calcium (Atorvastatin 20 Mg Tab) 20 mg PO [facility] Stop: 02/22/22 08:59 Last Admin: 01/24/22 08:56 Dose: 20 mg Documented by: Enoxaparin Sodium (Enoxaparin Inj 40 Mg/0.4 Ml Syr) 40 mg SQ [facility]AM [facility] Stop: 02/22/22 08:59 Last Admin: 01/24/22 08:56 Dose: 40 mg Documented by: Folic Acid (Folic Acid 1 Mg Tab) 1 mg PO QAM [facility] Stop: 02/23/22 08:59 Last Admin: 01/24/22 08:56 Dose: 1 mg Documented by: Gabapentin (Gabapentin 100 Mg Cap) 100 mg PO TID [facility] Stop: 02/23/22 13:59 Acetaminophen (Ofirmev) 1,000 mg in 100 mls @ 400 mls/hr IV Q8H [facility] Stop: 01/27/22 10:14 Ipratropium [place] (Ipratropium [place] Neb Soln 0.02% 2.5 Ml Vial) 0.5 mg INH Q4H PRN PRN Reason: SOB, wheezing Stop: 02/22/22 03:01 Levalbuterol HCl (Levalbuterol 1.25mg/0.5ml Neb) 1.25 mg INH Q4H PRN PRN Reason: SOB, wheezing Stop: 02/22/22 03:01 Lorazepam (Lorazepam 2 Mg/1 Ml Vial) 1 mg IV UD PRN; Protocol PRN Reason: EtOH Withdrawl AWSS Score 6,7 Stop: 02/22/22 20:13 Lorazepam (Lorazepam 2 Mg/1 Ml Vial) 2 mg IV UD PRN; Protocol PRN Reason: EtOH Withdrawl AWSS Score 8,9 Stop: 02/22/22 20:13 Last Admin: 01/23/22 22:11 Dose: 2 mg Documented by: Lorazepam (Lorazepam 2 Mg/1 Ml Vial) 3 mg IV ONCE PRN; Protocol PRN Reason: EtOH Withdrawl AWSS Score >=10 Stop: 02/22/22 20:13 Last Admin: 01/24/22 09:55 Dose: 3 mg Documented by: Oxycodone HCl (Oxycodone Hcl Ir 5 Mg Tab (Immediate Release)) 5 mg PO Q4H PRN PRN Reason: Pain Stop: 02/06/22 00:33 Last Admin: 01/23/22 17:03 Dose: 5 mg Documented by: Thiamine HCl (Thiamine Hcl 100 Mg Tab) 100 mg PO QAM [facility] Stop: 02/23/22 08:59 Last Admin: 01/24/22 08:55 Dose: 100 mg Documented by: Umeclidinium/Vilanterol (Umeclidinium/Vilanterol 62.5/25mcg 7 Puffs/Inhaler) 1 puffs INH HS [facility] Stop: 02/22/22 20:59 Last Admin: 01/23/22 22:17 Dose: Not Given Documented by:
[2022-01-24] MEDS: ACETAMINOPHEN 1,000 MG/100 ML VIAL IV SCH ×2 (11:38→20:11)
[2022-01-24] MEDS: GABAPENTIN 100 MG CAP PO SCH ×2 (15:56→20:32)
[2022-01-24] MEDS: UMECLIDINIUM/VILANTEROL 62.5/25MCG 7 PUFFS/INHALER INH SCH (20:32)
[2022-01-25] MEDS: LORazepam 2 MG/1 ML VIAL IV PRN ×2 (00:55→03:29)
[2022-01-25] MEDS: ACETAMINOPHEN 1,000 MG/100 ML VIAL IV SCH ×3 (03:30→20:43)
[2022-01-25] MEDS: FOLIC ACID 1 MG TAB PO SCH (09:36)
[2022-01-25] MEDS: GABAPENTIN 100 MG CAP PO SCH (09:36)
[2022-01-25] MEDS: ASPIRIN 81 MG ECTAB PO SCH (09:36)
[2022-01-25] MEDS: ATORVASTATIN 20 MG TAB PO SCH (09:36)
[2022-01-25] MEDS: ENOXAPARIN INJ 40 MG/0.4 ML SYR SQ SCH (09:36)
[2022-01-25] MEDS: THIAMINE HCL 100 MG TAB PO SCH (09:36)
--- NOTE | 2022-01-25 10:50 | Hospitalist Progress Note ---
Date of Service January 25, 2022 Assessment & Plan (1) Left rib fracture: Plan: Chest pain secondary to left eighth rib fracture that is mildly displaced. Continue scheduled Tylenol 1000 mg every 8 hours and hold oxycodone to avoid polypharmacy.. Lidocaine patch is not working so this was stopped. Changed gabapentin to 100mg PO TID (when more awake and able to tolerate PO) to help with pain. Currently not able to tolerate PO so not taking. Titrate up weekly as needed if tolerated. (2) Alcohol abuse: Plan: Heavy alcohol user reporting 5-6 drinks every other day. He was tremulous and unable to get comfortable sitting down and standing up and changing positions frequently. Currently sedated with medication because of continued combativeness and withdrawal. Daily thiamine and folate ordered-will switch to IV now. Stop gabapentin taper in this 81 yo man as the Ativan is working very well and want to avoid polypharmacy at this time. Also holding oxycodone until more awake and alert. OK with small dose of scheduled gabapentin as above once tolerating PO again. (3) Alcohol withdrawal: Plan: actively withdrawing. 12mg IV Ativan given overnight total. Discussed the plan with current bedside nurses regarding cautions and expectations. Cont to monitor closely. (4) Smoking: Plan: Nicotine patch as needed, counseled to quit and is in contemplative phase. (5) COPD (chronic obstructive pulmonary disease): Plan: Chronic, stable, no acute wheezing. Of note steroids were given to him from the ER but have been stopped. Continue Anoro Ellipta (6) DVT prophylaxis: Plan: Lovenox Full code Disposition-to home when pain is more controlled and he is mentating well and through his withdrawal. Margaret Padron DO [facility] Hospitalist Admission and Anticipated Discharge Date Admission Date: January 23, 2022 Subjective 81 yo M presented with acute left chest wall pain secondary to a displaced lateral eighth rib fracture. No pneumothorax was evident on chest imaging. Now with worsening alcohol withdrawal delirium. Overnight patient had a more severe withdrawal and IV ativan was given again He has received a total of 12mg IV since 1830 last evening. remains on Tylenol 1000mg IV q8H for known pain from underlying rib fracture. Patient is currently obtunded and unresponsive except to stir somewhat Review of Systems Review of Systems: Cannot obtain as patient is obtunded Physical Exam Physical Exam: CONSTITUTIONAL: WNWD, vitals as above,obtunded EYES: normal conjunctivae, no scleral icterus, ENT: external ear and nose normal,MMM NECK: trachea midline, RESPIRATORY: clear to auscultation bilaterally, no crackles, rales or wheezes, normal respiratory effort CARDIOVASCULAR: regular rate and rhythm, S1 and 2 heard without murmurs, gallops or rubs, no JVD, no peripheral edema, CHEST: inspection of chest was normal GASTROINTESTINAL: soft, nontender, ND, no guarding MUSCULOSKELETAL: cannot assess 2/2 mental status SKIN: warm and dry, NEUROLOGIC: obtunded Results & Data Results & Data ([facility]) Vital Signs (Past 12 Hours) Vital Signs Temp Pulse Pulse Pulse Resp BP BP 01/25/22 07:49 36.6 C 80 17 128/96 01/25/22 05:28 36.4 C L 86 20 132/106 H 01/25/22 03:54 36.2 C L 82 23 168/117 H 01/25/22 03:03 36.4 C L 94 H 20 168/113 H 01/25/22 00:42 36.5 C 90 16 163/100 H 01/24/22 23:00 35.7 C L 95 H 20 176/116 H Pulse Ox 01/25/22 07:49 96 01/25/22 05:28 01/25/22 03:54 92 01/25/22 03:03 01/25/22 00:42 01/24/22 23:00 92 Medications Administered Current Inpatient Medications Aspirin (Aspirin 81 Mg Ectab) 81 mg PO [facility] Stop: 02/22/22 08:59 Last Admin: 01/25/22 09:36 Dose: 81 mg Documented by: Atorvastatin Calcium (Atorvastatin 20 Mg Tab) 20 mg PO [facility] Stop: 02/22/22 08:59 Last Admin: 01/25/22 09:36 Dose: 20 mg Documented by: Enoxaparin Sodium (Enoxaparin Inj 40 Mg/0.4 Ml Syr) 40 mg SQ [facility] Stop: 02/22/22 08:59 Last Admin: 01/25/22 09:36 Dose: 40 mg Documented by: Folic Acid (Folic Acid 1 Mg Tab) 1 mg PO [facility] Stop: 02/23/22 08:59 Last Admin: 01/25/22 09:36 Dose: 1 mg Documented by: Gabapentin (Gabapentin 100 Mg Cap) 100 mg PO TID [facility] Stop: 02/23/22 13:59 Last Admin: 01/25/22 09:36 Dose: 100 mg Documented by: Acetaminophen (Ofirmev) 1,000 mg in 100 mls @ 400 mls/hr IV Q8H [facility] Stop: 01/27/22 11:29 Last Infusion: 01/25/22 03:55 Dose: Infused Documented by: Ipratropium [place] (Ipratropium [place] Neb Soln 0.02% 2.5 Ml Vial) 0.5 mg INH Q4H PRN PRN Reason: SOB, wheezing Stop: 02/22/22 03:01 Levalbuterol HCl (Levalbuterol 1.25mg/0.5ml Neb) 1.25 mg INH Q4H PRN PRN Reason: SOB, wheezing Stop: 02/22/22 03:01 Lorazepam (Lorazepam 2 Mg/1 Ml Vial) 1 mg IV UD PRN; Protocol PRN Reason: EtOH Withdrawl AWSS Score 6,7 Stop: 02/22/22 20:13 Lorazepam (Lorazepam 2 Mg/1 Ml Vial) 2 mg IV UD PRN; Protocol PRN Reason: EtOH Withdrawl AWSS Score 8,9 Stop: 02/22/22 20:13 Last Admin: 01/24/22 23:15 Dose: 2 mg Documented by: Lorazepam (Lorazepam 2 Mg/1 Ml Vial) 3 mg IV ONCE PRN; Protocol PRN Reason: EtOH Withdrawl AWSS Score >=10 Stop: 02/22/22 20:13 Last Admin: 01/25/22 03:29 Dose: 3 mg Documented by: Oxycodone HCl (Oxycodone Hcl Ir 5 Mg Tab (Immediate Release)) 5 mg PO Q4H PRN PRN Reason: Pain Stop: 02/06/22 00:33 Last Admin: 01/23/22 17:03 Dose: 5 mg Documented by: Thiamine HCl (Thiamine Hcl 100 Mg Tab) 100 mg PO QAM [facility] Stop: 02/23/22 08:59 Last Admin: 01/25/22 09:36 Dose: 100 mg Documented by: Umeclidinium/Vilanterol (Umeclidinium/Vilanterol 62.5/25mcg 7 Puffs/Inhaler) 1 puffs INH HS [facility] Stop: 02/22/22 20:59 Last Admin: 01/24/22 20:32 Dose: Not Given Documented by:
[2022-01-25] MEDS ORDERED: LORazepam 2 MG/1 ML VIAL IV PRN ×3 (10:52)
[2022-01-25] MEDS ORDERED: MULTI-VITAMIN INFUSION 10 ML, THIAMINE HCL 100 MG, FOLIC ACID 1 MG in SODIUM CHLORIDE 0... IV ONE (11:00)
[2022-01-25] MEDS: UMECLIDINIUM/VILANTEROL 62.5/25MCG 7 PUFFS/INHALER INH SCH (20:44)
[2022-01-26] MEDS ORDERED: GABAPENTIN 600 MG TAB PO SCH
[2022-01-26] MEDS: LORazepam 2 MG/1 ML VIAL IV PRN ×6 (00:16→21:47)
[2022-01-26] MEDS ORDERED: LORazepam 2 MG/1 ML VIAL IV STA (05:08)
[2022-01-26] MEDS: ACETAMINOPHEN 1,000 MG/100 ML VIAL IV SCH ×3 (05:51→20:11)
[2022-01-26 07:50] LABS: BUN Creatinine Ratio 20.3 (10-20); Calcium 8.4 mg/dl (8.5-10.1); Creatinine Clr Calc Pharmacy 69.7 ml/min; Est GFR (African American) 98.3 ml/min; Est GFR (Non-African American) 84.8 ml/min; Magnesium 1.9 mg/dl (1.7-2.4); Phosphorus 2.7 mg/dl (2.5-4.9); Potassium 3.7 mmol/L (3.5-5.1)
[2022-01-26] MEDS: ENOXAPARIN INJ 40 MG/0.4 ML SYR SQ SCH (10:52)
[2022-01-26] MEDS: FOLIC ACID 1 MG in SYRINGE 9.8 ML IV SCH (10:53)
[2022-01-26] MEDS: THIAMINE HCL 100 MG in SYRINGE 9 ML IV SCH (10:53)
--- NOTE | 2022-01-26 13:00 | XRay Report ---
XR chest 1V portable CLINICAL HISTORY: AMS, aspiration risk TECHNIQUE: Single frontal radiograph of the chest was obtained. Comparison: Comparison is made to chest one view 01/22/2022 FINDINGS: No lines and tubes are seen. The cardiomediastinal silhouette is normal. Lungs are underinflated but clear. No evidence of pleural effusion or pneumothorax. IMPRESSION: No acute chest disease. ACT 112: Negative or not required by law. Electronically signed by: Esteban Francois M.D. 01/26/2022 12:59 PM
[2022-01-26] MEDS: D5W AND NSS 1,000 ML IV SCH (14:52)
--- NOTE | 2022-01-26 15:36 | Hospitalist Progress Note ---
Date of Service January 26, 2022 Assessment & Plan (1) Left rib fracture: Plan: Chest pain secondary to left eighth rib fracture that is mildly displaced. Continue scheduled Tylenol 1000 mg every 8 hours and hold oxycodone to avoid polypharmacy. Lidocaine patch is not working so this was stopped. Changed gabapentin to 100mg PO TID (when more awake and able to tolerate PO) to help with pain. Currently not able to tolerate PO so not taking. Titrate up weekly as needed if tolerated. (2) Alcohol abuse: Plan: Heavy alcohol user reporting 5-6 drinks every other day. He was tremulous and unable to get comfortable sitting down and standing up and changing positions frequently. Currently sedated with medication because of continued combativeness and withdrawal. This is the second day of delirium. Daily thiamine and folate. Stop gabapentin taper in this 81 yo man as the Ativan is working very well and want to avoid polypharmacy at this time. Also holding oxycodone until more awake and alert. OK with small dose of scheduled gabapentin as above once tolerating PO again. (3) Alcohol withdrawal: Plan: actively withdrawing. Decreased sliding scale, however, MD to authorize additional medications when needed. Currently he is appropriately sedated and oxygenating well. CXR is clear despite high aspiration risk. (4) Smoking: Plan: Nicotine patch as needed, counseled to quit and is in contemplative phase. (5) COPD (chronic obstructive pulmonary disease): Plan: Chronic, stable, no acute wheezing. Of note steroids were given to him from the ER but have been stopped. Continue Anoro Ellipta (6) DVT prophylaxis: Plan: Lovenox Full code Disposition-to home when pain is more controlled and he is mentating well and through his withdrawal. Margaret Padron DO [facility] Hospitalist Admission and Anticipated Discharge Date Admission Date: January 23, 2022 Subjective 81 yo M presented with acute left chest wall pain secondary to a displaced lateral eighth rib fracture. No pneumothorax was evident on chest imaging. Now with worsening alcohol withdrawal delirium. Persistent alcohol withdrawal remains on Tylenol 1000mg IV q8H for known pain from underlying rib fracture. Patient is currently obtunded and unresponsive except to stir somewhat, received IV Ativan about 1 hour ago. Review of Systems Review of Systems: Cannot obtain as patient is obtunded Physical Exam Physical Exam: CONSTITUTIONAL: WNWD, vitals as above,obtunded EYES: normal conjunctivae, no scleral icterus, ENT: external ear and nose normal,MMM NECK: trachea midline, RESPIRATORY: clear to auscultation bilaterally, no crackles, rales or wheezes, normal respiratory effort CARDIOVASCULAR: regular rate and rhythm, S1 and 2 heard without murmurs, gallops or rubs, no JVD, no peripheral edema, CHEST: inspection of chest was normal GASTROINTESTINAL: soft, nontender, ND, no guarding MUSCULOSKELETAL: cannot assess 2/2 mental status SKIN: warm and dry, NEUROLOGIC: obtunded Results & Data Results & Data ([facility]) Vital Signs (Past 12 Hours) Vital Signs Temp Pulse Pulse Pulse Resp BP BP 01/26/22 14:48 36.6 C 97 H 24 136/101 H 01/26/22 10:59 36.8 C 95 H 26 H 119/87 01/26/22 08:04 36.5 C 86 16 131/95 01/26/22 05:12 36.5 C 101 H 14 129/96 Pulse Ox 01/26/22 14:48 97 01/26/22 10:59 95 01/26/22 08:04 96 01/26/22 05:12 94 Laboratory Results BMP 01/26/22 06:51 Sodium 137 Potassium 3.7 Chloride 107 Carbon Dioxide 20 L BUN 16 Creatinine 0.79 Glucose 74 Calcium 8.4 L Diagnostic Findings Chest X-Ray 01/26/22 12:17 XR chest 1V portable CLINICAL HISTORY: AMS, aspiration risk TECHNIQUE: Single frontal radiograph of the chest was obtained. Comparison: Comparison is made to chest one view 01/22/2022 FINDINGS: No lines and tubes are seen. The cardiomediastinal silhouette is normal. Lungs are underinflated but clear. No evidence of pleural effusion or pneumothorax. IMPRESSION: No acute chest disease. ACT 112: Negative or not required by law. Electronically signed by: Esteban Francois M.D. 01/26/2022 12:59 PM Medications Administered Current Inpatient Medications Aspirin (Aspirin 81 Mg Ectab) 81 mg PO [facility] Stop: 02/22/22 08:59 Last Admin: 01/25/22 09:36 Dose: 81 mg Documented by: Atorvastatin Calcium (Atorvastatin 20 Mg Tab) 20 mg PO [facility] Stop: 02/22/22 08:59 Last Admin: 01/25/22 09:36 Dose: 20 mg Documented by: Enoxaparin Sodium (Enoxaparin Inj 40 Mg/0.4 Ml Syr) 40 mg SQ QAM [facility] Stop: 02/22/22 08:59 Last Admin: 01/26/22 10:52 Dose: 40 mg Documented by: Gabapentin (Gabapentin 100 Mg Cap) 100 mg PO TID [facility] Stop: 02/23/22 13:59 Last Admin: 01/25/22 09:36 Dose: 100 mg Documented by: Acetaminophen (Ofirmev) 1,000 mg in 100 mls @ 400 mls/hr IV Q8H [facility] Stop: 01/27/22 11:29 Last Infusion: 01/26/22 11:09 Dose: Infused Documented by: Thiamine HCl 100 mg/ Syringe 10 mls @ 2 mls/min IV [facility] Stop: 02/25/22 08:59 Last Admin: 01/26/22 10:53 Dose: 2 mls/min Documented by: Folic Acid 1 mg/ Syringe 10 mls @ 5 mls/min IV [facility] Stop: 02/25/22 08:59 Last Admin: 01/26/22 10:53 Dose: 5 mls/min Documented by: Dextrose/Sodium Chloride (D5w And Nss) 1,000 mls @ 75 mls/hr IV .[id number] [facility] Stop: 01/27/22 15:09 Last Admin: 01/26/22 14:52 Dose: 75 mls/hr Documented by: Ipratropium [place] (Ipratropium [place] Neb Soln 0.02% 2.5 Ml Vial) 0.5 mg INH Q4H PRN PRN Reason: SOB, wheezing Stop: 02/22/22 03:01 Levalbuterol HCl (Levalbuterol 1.25mg/0.5ml Neb) 1.25 mg INH Q4H PRN PRN Reason: SOB, wheezing Stop: 02/22/22 03:01 Lorazepam (Lorazepam 2 Mg/1 Ml Vial) 0.5 mg IV UD PRN; Protocol PRN Reason: EtOH Withdrawl AWSS Score 6,7 Stop: 02/22/22 20:13 Lorazepam (Lorazepam 2 Mg/1 Ml Vial) 1 mg IV UD PRN; Protocol PRN Reason: EtOH Withdrawl AWSS Score >7 Stop: 02/22/22 20:13 Last Admin: 01/26/22 14:55 Dose: 1 mg Documented by: Oxycodone HCl (Oxycodone Hcl Ir 5 Mg Tab (Immediate Release)) 5 mg PO Q4H PRN PRN Reason: Pain Stop: 02/06/22 00:33 Last Admin: 01/23/22 17:03 Dose: 5 mg Documented by: Umeclidinium/Vilanterol (Umeclidinium/Vilanterol 62.5/25mcg 7 Puffs/Inhaler) 1 puffs INH HS [facility] Stop: 02/22/22 20:59 Last Admin: 01/25/22 20:44 Dose: 1 puffs Documented by:
[2022-01-26] MEDS: UMECLIDINIUM/VILANTEROL 62.5/25MCG 7 PUFFS/INHALER INH SCH (20:10)
[2022-01-27] MEDS: D5W AND NSS 1,000 ML IV SCH (03:50)
[2022-01-27] MEDS: ACETAMINOPHEN 1,000 MG/100 ML VIAL IV SCH (03:53)
[2022-01-27] MEDS: LORazepam 2 MG/1 ML VIAL IV PRN ×3 (03:54→23:28)
--- NOTE | 2022-01-27 06:26 | Communication Note ---
Date of Service: January 27, 2022 SBP 170s to 190s overnight. Patient agitated during vitals monitoring as per RN. Unable to take oral meds safely for now. AP Hypertensive urgency Alcohol withdrawal Clonidine patch for now
[2022-01-27] MEDS ORDERED: cloNIDine HCL 0.1 MG/24 HR TRANSDERM SYS TD SCH (06:45)
[2022-01-27] MEDS: THIAMINE HCL 100 MG in SYRINGE 9 ML IV SCH (09:30)
[2022-01-27] MEDS: FOLIC ACID 1 MG in SYRINGE 9.8 ML IV SCH (09:30)
[2022-01-27] MEDS: CHECK CLONIDINE PATCH PLACEMENT SCH ×3 (09:30→23:29)
[2022-01-27] MEDS: ENOXAPARIN INJ 40 MG/0.4 ML SYR SQ SCH (09:31)
[2022-01-27] MEDS ORDERED: GABAPENTIN 600 MG TAB PO SCH (12:00)
--- NOTE | 2022-01-27 14:06 | Hospitalist Progress Note ---
Date of Service January 27, 2022 Assessment & Plan (1) Left rib fracture: Plan: Chest pain secondary to left eighth rib fracture that is mildly displaced. Continue scheduled Tylenol 1000 mg every 8 hours and hold oxycodone to avoid polypharmacy. Lidocaine patch is not working so this was stopped. Changed gabapentin to 100mg PO TID (when more awake and able to tolerate PO) to help with pain. Currently not able to tolerate PO so not taking. Titrate up weekly as needed if tolerated. (2) Alcohol abuse: Plan: Heavy alcohol user reporting 5-6 drinks every other day. He was tremulous and unable to get comfortable sitting down and standing up and changing positions frequently on admission. Currently sedated with medication because of continued combativeness and withdrawal. Soft lmb restraints continued. This is the third day of delirium. Daily thiamine and folate. Stop gabapentin taper in this 81 yo man as the Ativan is working very well and want to avoid polypharmacy at this time. Also holding oxycodone until more awake and alert. OK with small dose of scheduled gabapentin as above once tolerating PO again. (3) Alcohol withdrawal: Plan: actively withdrawing. Decreased sliding scale, however, MD to authorize additional medications when needed. Currently he is appropriately sedated and oxygenating well. CXR is clear despite high aspiration risk. (4) Smoking: Plan: Nicotine patch as needed, counseled to quit and is in contemplative phase. (5) COPD (chronic obstructive pulmonary disease): Plan: Chronic, stable, no acute wheezing. Of note steroids were given to him from the ER but have been stopped. Continue Anoro Ellipta (6) DVT prophylaxis: Plan: Lovenox Full code Disposition-to home when pain is more controlled and he is mentating well and through his withdrawal. Will need PT and OT evaluations when more appropriate. Margaret Padron DO [facility] Hospitalist Admission and Anticipated Discharge Date Admission Date: January 23, 2022 Subjective 81 yo M presented with acute left chest wall pain secondary to a displaced lateral eighth rib fracture. No pneumothorax was evident on chest imaging. Now with worsening alcohol withdrawal delirium. Persistent alcohol withdrawal remains on Tylenol 1000mg IV q8H for known pain from underlying rib fracture. Patient remains confused and confabulates words He is awake and able to look at examiner but unable to speak wtih me or follow instructions Currently restrained wtih soft limb restraints and received IV ativan overnight. Review of Systems Review of Systems: Cannot obtain as patient is obtunded Physical Exam Physical Exam: CONSTITUTIONAL: WNWD, vitals as above, confused with agitation, trying to pull at lines/IV. In soft limb restraints. EYES: normal conjunctivae, no scleral icterus, ENT: external ear and nose normal,MMM NECK: trachea midline, RESPIRATORY: clear to auscultation bilaterally, no crackles, rales or wheezes, normal respiratory effort CARDIOVASCULAR: regular rate and rhythm, S1 and 2 heard without murmurs, gallops or rubs, no JVD, no peripheral edema, CHEST: inspection of chest was normal GASTROINTESTINAL: soft, nontender, ND, no guarding MUSCULOSKELETAL: cannot assess 2/2 mental status SKIN: warm and dry, NEUROLOGIC: confused, exam is limited, does not appear to have any gross focal deficits. Results & Data Results & Data [facility]) Vital Signs (Past 12 Hours) Vital Signs Temp Pulse Pulse Resp BP Pulse Ox 01/27/22 11:16 36.7 C 96 H 24 169/84 H 94 01/27/22 07:46 36.9 C 70 19 174/92 H 96 01/27/22 05:41 36.5 C 80 18 194/97 H 97 Medications Administered Current Inpatient Medications Aspirin (Aspirin 81 Mg Ectab) 81 mg PO QAM [facility] Stop: 02/22/22 08:59 Last Admin: 01/25/22 09:36 Dose: 81 mg Documented by: Atorvastatin Calcium (Atorvastatin 20 Mg Tab) 20 mg PO QAM [facility] Stop: 02/22/22 08:59 Last Admin: 01/25/22 09:36 Dose: 20 mg Documented by: Clonidine HCl (Clonidine Hcl 0.1 Mg/24 Hr Transderm Sys) 1 patch TD Q7D [facility] Stop: 02/26/22 06:44 Last Admin: 01/27/22 07:29 Dose: 1 patch Documented by: Enoxaparin Sodium (Enoxaparin Inj 40 Mg/0.4 Ml Syr) 40 mg SQ QAM [facility] Stop: 02/22/22 08:59 Last Admin: 01/27/22 09:31 Dose: 40 mg Documented by: Gabapentin (Gabapentin 100 Mg Cap) 100 mg PO TID [facility] Stop: 02/23/22 13:59 Last Admin: 02/28/22 09:36 Dose: 100 mg Documented by: Thiamine HCl 100 mg/ Syringe 10 mls @ 2 mls/min IV QAM [facility] Stop: 02/25/22 08:59 Last Admin: 01/27/22 09:30 Dose: 2 mls/min Documented by: Folic Acid 1 mg/ Syringe 10 mls @ 5 mls/min IV QAM [facility] Stop: 02/25/22 08:59 Last Admin: 01/27/22 09:30 Dose: 5 mls/min Documented by: Dextrose/Sodium Chloride (D5w And Nss) 1,000 mls @ 50 mls/hr IV .Q20H [facility] Stop: 01/27/22 19:32 Last Admin: 01/27/22 03:50 Dose: 75 mls/hr Documented by: Ipratropium [place] (Ipratropium [place] Neb Soln 0.02% 2.5 Ml Vial) 0.5 mg INH Q4H PRN PRN Reason: SOB, wheezing Stop: 02/22/22 03:01 Levalbuterol HCl (Levalbuterol 1.25mg/0.5ml Neb) 1.25 mg INH Q4H PRN PRN Reason: SOB, wheezing Stop: 02/22/22 03:01 Lorazepam (Lorazepam 2 Mg/1 Ml Vial) 0.5 mg IV UD PRN; Protocol PRN Reason: EtOH Withdrawl AWSS Score 6,7 Stop: 02/22/22 20:13 Lorazepam (Lorazepam 2 Mg/1 Ml Vial) 1 mg IV UD PRN; Protocol PRN Reason: EtOH Withdrawl AWSS Score >7 Stop: 02/22/22 20:13 Last Admin: 01/27/22 03:54 Dose: 1 mg Documented by: Miscellaneous (Remove Clonidine Patch) 1 ea N/A CQWK [facility] Stop: 02/26/22 06:29 Last Admin: 01/27/22 09:30 Dose: 1 ea Documented by: Miscellaneous (Check Clonidine Patch Placement) 1 ea N/A QS [facility] Stop: 02/26/22 07:59 Last Admin: 01/27/22 09:30 Dose: 1 ea Documented by: Oxycodone HCl (Oxycodone Hcl Ir 5 Mg Tab (Immediate Release)) 5 mg PO Q4H PRN PRN Reason: Pain Stop: 02/06/22 00:33 Last Admin: 01/23/22 17:03 Dose: 5 mg Documented by: Umeclidinium/Vilanterol (Umeclidinium/Vilanterol 62.5/25mcg 7 Puffs/Inhaler) 1 puffs INH HS [facility] Stop: 02/22/22 20:59 Last Admin: 01/26/22 20:10 Dose: 1 puffs Documented by:
[2022-01-27] MEDS ORDERED: D5W AND NSS 1,000 ML IV SCH (17:45)
[2022-01-27] MEDS: D5NSS + 20MEQ KCL 20 MEQ/1,000 ML BAG IV SCH (20:49)
[2022-01-27] MEDS: UMECLIDINIUM/VILANTEROL 62.5/25MCG 7 PUFFS/INHALER INH SCH (20:54)
[2022-01-28] MEDS ORDERED: cloNIDine HCL 0.1 MG TAB PO ONE (04:06)
[2022-01-28] MEDS ORDERED: LABETALOL HCL IV 5 MG/ML 20ML IV STA (04:10)
[2022-01-28] MEDS: ENOXAPARIN INJ 40 MG/0.4 ML SYR SQ SCH (09:26)
[2022-01-28] MEDS: FOLIC ACID 1 MG in SYRINGE 9.8 ML IV SCH (09:27)
[2022-01-28] MEDS: CHECK CLONIDINE PATCH PLACEMENT SCH ×2 (09:27→17:49)
[2022-01-28] MEDS: THIAMINE HCL 100 MG in SYRINGE 9 ML IV SCH (09:27)
--- NOTE | 2022-01-28 16:52 | Hospitalist Progress Note ---
Date of Service January 28, 2022 Assessment & Plan (1) Left rib fracture: Plan: Chest pain secondary to left eighth rib fracture that is mildly displaced. Continue scheduled Tylenol and hold oxycodone to avoid polypharmacy. Lidocaine patch is not working so this was stopped. Changed gabapentin to 100mg PO TID (when more awake and able to tolerate PO) to help with pain. Currently not able to tolerate PO so not taking. Titrate up weekly as needed if tolerated. (2) Alcohol abuse: Plan: Heavy alcohol user reporting 5-6 drinks every other day. He was tremulous and unable to get comfortable sitting down and standing up and changing positions frequently on admission. Currently sedated with medication because of continued combativeness and withdrawal. Soft lmb restraints continued. This is the third day of delirium. Daily thiamine and folate. Stop gabapentin taper in this 81 yo man as the Ativan is working very well and want to avoid polypharmacy at this time. Also holding oxycodone until more awake and alert. OK with small dose of scheduled gabapentin as above once tolerating PO again. (3) Alcohol withdrawal: Plan: Continues to actively withdraw. Decreased sliding scale, however, MD to authorize additional medications when needed. Currently he is appropriately sedated and oxygenating well. (4) Smoking: Plan: Nicotine patch as needed, counseled to quit and is in contemplative phase. (5) COPD (chronic obstructive pulmonary disease): Plan: Chronic, stable, no acute wheezing. Of note steroids were given to him from the ER but have been stopped. Continue Anoro Ellipta (6) DVT prophylaxis: Plan: Lovenox Full code Disposition-to home when pain is more controlled and he is mentating well and through his withdrawal. Will need PT and OT evaluations when more appropriate. Margaret Padron DO [facility] Hospitalist Admission and Anticipated Discharge Date Admission Date: January 23, 2022 Subjective 81 yo M presented with acute left chest wall pain secondary to a displaced lateral eighth rib fracture. No pneumothorax was evident on chest imaging. Now with worsening alcohol withdrawal delirium. Persistent alcohol withdrawal Patient is more awake this morning, but again was combative requiring soft limb restraints and Ativan Patient remains confused and confabulates words He is awake and able to look at examiner but unable to speak wtih me or follow instructions Review of Systems Review of Systems: Cannot obtain as patient is confused Physical Exam Physical Exam: CONSTITUTIONAL: WNWD, vitals as above, confused with agitation, In soft limb restraints. EYES: normal conjunctivae, no scleral icterus, ENT: external ear and nose normal,MMM NECK: trachea midline, RESPIRATORY: clear to auscultation bilaterally, no crackles, rales or wheezes, normal respiratory effort CARDIOVASCULAR: regular rate and rhythm, S1 and 2 heard without murmurs, gallops or rubs, no JVD, no peripheral edema, CHEST: inspection of chest was normal GASTROINTESTINAL: soft, nontender, ND, no guarding MUSCULOSKELETAL: cannot assess 2/2 mental status SKIN: warm and dry, NEUROLOGIC: confused, exam is limited, does not appear to have any gross focal deficits. Results & Data Results & Data ([facility]) Vital Signs (Past 12 Hours) Vital Signs Temp Pulse Pulse Resp BP Pulse Ox 01/28/22 11:59 36.4 C L 98 H 19 187/99 H 98 01/28/22 05:55 92 H Medications Administered Current Inpatient Medications Acetaminophen (Acetaminophen 1000 Mg/100 Ml Iv) 1,000 mg IV Q12H [facility] Stop: 01/31/22 16:59 Aspirin (Aspirin 81 Mg Ectab) 81 mg PO QAM [facility] Stop: 02/22/22 08:59 Last Admin: 01/25/22 09:36 Dose: 81 mg Documented by: Atorvastatin Calcium (Atorvastatin 20 Mg Tab) 20 mg PO QAM [facility] Stop: 02/22/22 08:59 Last Admin: 01/25/22 09:36 Dose: 20 mg Documented by: Clonidine HCl (Clonidine Hcl 0.1 Mg/24 Hr Transderm Sys) 1 patch TD Q7D [facility] Stop: 02/26/22 06:44 Last Admin: 01/27/22 07:29 Dose: 1 patch Documented by: Enoxaparin Sodium (Enoxaparin Inj 40 Mg/0.4 Ml Syr) 40 mg SQ QAM [facility] Stop: 02/22/22 08:59 Last Admin: 01/28/22 09:26 Dose: 40 mg Documented by: Gabapentin (Gabapentin 100 Mg Cap) 100 mg PO TID [facility] Stop: 02/23/22 13:59 Last Admin: 01/25/22 09:36 Dose: 100 mg Documented by: Thiamine HCl 100 mg/ Syringe 10 mls @ 2 mls/min IV QAM [facility] Stop: 02/25/22 08:59 Last Admin: 03/03/22 09:27 Dose: 2 mls/min Documented by: Folic Acid 1 mg/ Syringe 10 mls @ 5 mls/min IV QAM [facility] Stop: 02/25/22 08:59 Last Admin: 01/28/22 09:27 Dose: 5 mls/min Documented by: Potassium Chloride/Dextrose/Sod Cl (D5nss + 20meq Kcl) 20 meq in 1,000 mls @ 75 mls/hr IV .[id number] [facility]; Protocol Stop: 02/26/22 17:44 Last Admin: 01/27/22 20:49 Dose: 15 mls/hr Documented by: Ipratropium [place] (Ipratropium [place] Neb Soln 0.02% 2.5 Ml Vial) 0.5 mg INH Q4H PRN PRN Reason: SOB, wheezing Stop: 02/22/22 03:01 Levalbuterol HCl (Levalbuterol 1.25mg/0.5ml Neb) 1.25 mg INH Q4H PRN PRN Reason: SOB, wheezing Stop: 02/22/22 03:01 Last Admin: 01/28/22 12:24 Dose: 1.25 mg Documented by: Lorazepam (Lorazepam 2 Mg/1 Ml Vial) 0.5 mg IV UD PRN; Protocol PRN Reason: EtOH Withdrawl AWSS Score 6,7 Stop: 02/22/22 20:13 Last Admin: 01/28/22 12:24 Dose: 1 mg Documented by: Lorazepam (Lorazepam 2 Mg/1 Ml Vial) 1 mg IV UD PRN; Protocol PRN Reason: EtOH Withdrawl AWSS Score >7 Stop: 02/22/22 20:13 Last Admin: 01/27/22 23:28 Dose: 1 mg Documented by: Miscellaneous (Remove Clonidine Patch) 1 ea N/A CQWK [facility] Stop: 02/26/22 06:29 Last Admin: 01/27/22 09:30 Dose: 1 ea Documented by: Miscellaneous (Check Clonidine Patch Placement) 1 ea N/A QS [facility] Stop: 02/26/22 07:59 Last Admin: 01/28/22 09:27 Dose: 1 ea Documented by: Oxycodone HCl (Oxycodone Hcl Ir 5 Mg Tab (Immediate Release)) 5 mg PO Q4H PRN PRN Reason: Pain Stop: 02/06/22 00:33 Last Admin: 01/23/22 17:03 Dose: 5 mg Documented by: Umeclidinium/Vilanterol (Umeclidinium/Vilanterol 62.5/25mcg 7 Puffs/Inhaler) 1 puffs INH HS [facility] Stop: 02/22/22 20:59 Last Admin: 01/27/22 20:54 Dose: 1 puffs Documented by:
[2022-01-28] MEDS: ACETAMINOPHEN 1000 MG/100 ML IV IV SCH (17:47)
[2022-01-29] MEDS: D5NSS + 20MEQ KCL 20 MEQ/1,000 ML BAG IV SCH ×2 (06:08→12:51)
[2022-01-29] MEDS: ACETAMINOPHEN 1000 MG/100 ML IV IV SCH ×2 (06:09→16:53)
[2022-01-29] MEDS: UMECLIDINIUM/VILANTEROL 62.5/25MCG 7 PUFFS/INHALER INH SCH ×2 (06:09→21:08)
[2022-01-29] MEDS: CHECK CLONIDINE PATCH PLACEMENT SCH ×3 (06:09→16:32)
[2022-01-29] MEDS: THIAMINE HCL 100 MG in SYRINGE 9 ML IV SCH (08:16)
[2022-01-29] MEDS: ENOXAPARIN INJ 40 MG/0.4 ML SYR SQ SCH (08:16)
[2022-01-29] MEDS: FOLIC ACID 1 MG in SYRINGE 9.8 ML IV SCH (08:16)
--- NOTE | 2022-01-29 14:19 | Hospitalist Progress Note ---
Date of Service January 29, 2022 Assessment & Plan (1) Left rib fracture: Plan: Chest pain secondary to left eighth rib fracture that is mildly displaced. Continue scheduled Tylenol and hold oxycodone to avoid polypharmacy. Lidocaine patch was not working so this was stopped. Changed gabapentin to 100mg PO TID (when more awake and able to tolerate PO) to help with pain. While he is still slightly confused, will cont to hold off on this. He is also reporting no rib pain at this time. May consider starting and titrating up weekly as needed. (2) Alcohol abuse: Plan: Heavy alcohol user reporting 5-6 drinks every other day. Six days of alcohol delirium requiring significant Ativan and soft limb restraints. This is resolving and he is now eating. Cont supportive care and alcohol rehab at [facility]. (3) Alcohol withdrawal: Plan: plan as above. (4) Smoking: Plan: Nicotine patch as needed, counseled to quit and is in contemplative phase. (5) COPD (chronic obstructive pulmonary disease): Plan: Chronic, stable, no acute wheezing. Of note steroids were given to him from the ER but have been stopped. Continue Anoro Ellipta (6) DVT prophylaxis: Plan: Lovenox Full code Disposition-to home when pain is more controlled and he is mentating well and through his withdrawal. Will need PT and OT evaluations when more appropriate. Margaret Padron DO [facility] Hospitalist Admission and Anticipated Discharge Date Admission Date: January 23, 2022 Subjective 81 yo M presented with acute left chest wall pain secondary to a displaced lateral eighth rib fracture. No pneumothorax was evident on chest imaging. 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 at bedside Review of Systems Review of Systems: Limited as patient is confused, however, all systems were reviewed and negative except as indicated above. Physical Exam Physical Exam: CONSTITUTIONAL: WNWD, vitals as above, sitting in chair eating. EYES: normal conjunctivae, no scleral icterus, ENT: external ear and nose normal,MMM NECK: trachea midline, RESPIRATORY: clear to auscultation bilaterally, no crackles, rales or wheezes, normal respiratory effort CARDIOVASCULAR: regular rate and rhythm, S1 and 2 heard without murmurs, gallops or rubs, no JVD, no peripheral edema, CHEST: inspection of chest was normal GASTROINTESTINAL: soft, nontender, ND, no guarding MUSCULOSKELETAL: cannot assess 2/2 mental status SKIN: warm and dry, NEUROLOGIC: disoriented to place and time, thinks he is at [facility] which is reasonable considering 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 No gross focal deficits. Results & Data Results & Data ([facility]) Vital Signs (Past 12 Hours) Vital Signs Temp Pulse Resp BP BP Pulse Ox 01/29/22 11:48 36.5 C 93 H 20 119/66 97 01/29/22 07:57 36.4 C L 86 22 141/73 H 97 01/29/22 04:49 36.6 C 86 20 104/81 95 Medications Administered Current Inpatient Medications Acetaminophen (Acetaminophen 1000 Mg/100 Ml Iv) 1,000 mg IV Q12H [facility] Stop: 01/31/22 16:59 Last Admin: 01/29/22 06:09 Dose: Not Given Documented by: Aspirin (Aspirin 81 Mg Ectab) 81 mg PO QAM [facility] Stop: 02/22/22 08:59 Last Admin: 01/25/22 09:36 Dose: 81 mg Documented by: Atorvastatin Calcium (Atorvastatin 20 Mg Tab) 20 mg PO QAM [facility] Stop: 02/22/22 08:59 Last Admin: 01/25/22 09:36 Dose: 20 mg Documented by: Clonidine HCl (Clonidine Hcl 0.1 Mg/24 Hr Transderm Sys) 1 patch TD Q7D [facility] Stop: 02/26/22 06:44 Last Admin: 01/27/22 07:29 Dose: 1 patch Documented by: Enoxaparin Sodium (Enoxaparin Inj 40 Mg/0.4 Ml Syr) 40 mg SQ QAM [facility] Stop: 02/22/22 08:59 Last Admin: 01/29/22 08:16 Dose: 40 mg Documented by: Gabapentin (Gabapentin 100 Mg Cap) 100 mg PO TID [facility] Stop: 02/23/22 13:59 Last Admin: 01/25/22 09:36 Dose: 100 mg Documented by: Thiamine HCl 100 mg/ Syringe 10 mls @ 2 mls[place] [place] [facility] [place]: 02/25/22 08:59 Last Admin: 01/29/22 08:16 Dose: 2 mls/min Documented by: Folic Acid 1 mg/ Syringe 10 mls @ 5 mls/min IV QAM [facility] Stop: 02/25/22 08:59 Last Admin: 01/29/22 08:16 Dose: 5 mls/min Documented by: Potassium Chloride/Dextrose/Sod Cl (D5nss + 20meq Kcl) 20 meq in 1,000 mls @ 75 mls/hr IV .[id number] [facility]; Protocol Stop: 02/26/22 17:44 Last Admin: 01/29/22 12:51 Dose: 15 mls/hr Documented by: Ipratropium [place] (Ipratropium [place] Neb Soln 0.02% 2.5 Ml Vial) 0.5 mg INH Q4H PRN PRN Reason: SOB, wheezing Stop: 02/22/22 03:01 Levalbuterol HCl (Levalbuterol 1.25mg/0.5ml Neb) 1.25 mg INH Q4H PRN PRN Reason: SOB, wheezing Stop: 02/22/22 03:01 Last Admin: 01/28/22 12:24 Dose: 1.25 mg Documented by: Lorazepam (Lorazepam 2 Mg/1 Ml Vial) 0.5 mg IV UD PRN; Protocol PRN Reason: EtOH Withdrawl AWSS Score 6,7 Stop: 02/22/22 20:13 Last Admin: 01/28/22 12:24 Dose: 1 mg Documented by: Lorazepam (Lorazepam 2 Mg/1 Ml Vial) 1 mg IV UD PRN; Protocol PRN Reason: EtOH Withdrawl AWSS Score >7 Stop: 02/22/22 20:13 Last Admin: 01/27/22 23:28 Dose: 1 mg Documented by: Miscellaneous (Remove Clonidine Patch) 1 ea N/A CQWK [facility] Stop: 02/26/22 06:29 Last Admin: 01/27/22 09:30 Dose: 1 ea Documented by: Miscellaneous (Check Clonidine Patch Placement) 1 ea N/A QS [facility] Stop: 02/26/22 07:59 Last Admin: 01/29/22 08:15 Dose: 1 ea Documented by: Oxycodone HCl (Oxycodone Hcl Ir 5 Mg Tab (Immediate Release)) 5 mg PO Q4H PRN PRN Reason: Pain Stop: 02/06/22 00:33 Last Admin: 01/23/22 17:03 Dose: 5 mg Documented by: Umeclidinium/Vilanterol (Umeclidinium/Vilanterol 62.5/25mcg 7 Puffs/Inhaler) 1 puffs INH HS [facility] Stop: 02/22/22 20:59 Last Admin: 01/29/22 06:09 Dose: Not Given Documented by:
[2022-01-29] MEDS: LORazepam 2 MG/1 ML VIAL IV PRN (14:56)
[2022-01-29] MEDS ORDERED: LORazepam 0.5 MG TAB PO PRN (18:12)
[2022-01-29] MEDS ORDERED: LORazepam 0.5 MG TAB PO STA (18:20)
[2022-01-29] MEDS: GABAPENTIN 100 MG CAP PO SCH (21:09)
[2022-01-29] MEDS: ACETAMINOPHEN 500 MG TAB PO PRN (21:10)
[2022-01-30] MEDS: CHECK CLONIDINE PATCH PLACEMENT SCH ×3 (01:13→17:35)
[2022-01-30] MEDS: GABAPENTIN 100 MG CAP PO SCH ×3 (08:57→21:57)
[2022-01-30] MEDS: ASPIRIN 81 MG ECTAB PO SCH (08:57)
[2022-01-30] MEDS: ATORVASTATIN 20 MG TAB PO SCH (08:57)
[2022-01-30] MEDS: THIAMINE HCL 100 MG TAB PO SCH (08:58)
[2022-01-30] MEDS: ENOXAPARIN INJ 40 MG/0.4 ML SYR SQ SCH (08:58)
--- NOTE | 2022-01-30 14:16 | Hospitalist Progress Note ---
Date of Service January 30, 2022 Assessment & Plan (1) Left rib fracture: Plan: Chest pain secondary to left eighth rib fracture that is mildly displaced. Continue scheduled Tylenol and hold oxycodone to avoid polypharmacy. Lidocaine patch was not working so this was stopped. Changed gabapentin to 100mg PO TID (when more awake and able to tolerate PO) to help with pain. While he is still slightly confused, will cont to hold off on this. He is also reporting no rib pain at this time. May consider starting and titrating up weekly as needed. (2) Alcohol abuse: Plan: Heavy alcohol user reporting 5-6 drinks every other day. Six days of alcohol delirium requiring significant Ativan and soft limb restraints. This is resolving and he is now eating. Cont supportive care and alcohol rehab at [facility]. (3) Alcohol withdrawal: Plan: plan as above. (4) Smoking: Plan: Nicotine patch as needed, counseled to quit and is in contemplative phase. (5) COPD (chronic obstructive pulmonary disease): Plan: Chronic, stable, no acute wheezing. Of note steroids were given to him from the ER but have been stopped. Continue Anoro Ellipta (6) Decreased urine output: Plan: Reported no urine output since yesterday evening and low bladder scan. Limited oral intake. Will give fluid bolus and assess. Might need continuous IV infusion if oral intake remains poor. Check labs in am to assess renal function. (7) DVT prophylaxis: Plan: Lovenox Full code Disposition-PT recommends acute inpatient rehab. CM to assist. Admission and Anticipated Discharge Date Admission Date: January 23, 2022 Subjective Elderly male, sleeping but easily arousable. Hard of hearing and answers simple questions. When asked - are you okay- he replies- 'Am I in [place]?' Denies any pain. No fever, chills, nausea, vomiting. Eating but no urine output noted since yesterday evening per RN. Physical Exam Physical Exam: General: Elderly male, sleeping but easily arousable, not in distress, on room air HEENT: EOMI, MANUEL, Dry oral mucosa, no nystagmus Chest: Clear breath sounds bilaterally, no wheezes or crackles CVS: Regular rate and rhythm, normal heart sounds, no murmur Abdomen: Soft, non tender, not distended, normal bowel sounds Neuro: Awake, alert, oriented to self, very hard of hearing, speech unintelligible at times, follows simple commands, answers simple questions Extremities: No cyanosis, clubbing or edema, hand tremors on extension Results & Data Results & Data ([facility]) Vital Signs (Past 12 Hours) Vital Signs Temp Pulse Pulse Resp BP BP Pulse Ox 01/30/22 12:00 36.9 C 64 20 113/75 98 01/30/22 05:45 36.5 C 92 H 18 90/68 L 151/80 H 96 Diagnostic Findings Laboratory Results WBC 10.11 K/uL (4.8-10.8) 01/24/22 06:13 RBC 3.97 M/uL (4.7-6.1) L 01/24/22 06:13 Hgb 13.4 g/dL (14.0-18.0) L 01/24/22 06:13 Hct 39.3 % (42-52) L 01/24/22 06:13 MCV 99.0 fL (80-100) 01/24/22 06:13 MCH 33.8 pg (25-34) 01/24/22 06:13 MCHC 34.1 g/dL (32-36) 01/24/22 06:13 RDW Std Deviation 46.1 fL (36.4-46.3) 01/24/22 06:13 RDW Coeff of Manpreet 12.8 % (11.5-14.5) 01/24/22 06:13 Plt Count 223 K/uL (130-400) 01/24/22 06:13 MPV 8.9 fL (7.4-10.4) 01/24/22 06:13 Immature Gran % (Auto) 0.2 % 01/23/22 03:20 Neut % (Auto) 83.4 % 01/23/22 03:20 Lymph % (Auto) 9.8 % 01/23/22 03:20 Saunders % (Auto) 6.5 % 01/23/22 03:20 Eos % (Auto) 0.0 % 01/23/22 03:20 Baso % (Auto) 0.1 % 01/23/22 03:20 Neut # (Auto) 8.46 K/uL (1.4-6.5) H 01/23/22 03:20 Lymph # (Auto) 0.99 K/uL (1.2-3.4) L 01/23/22 03:20 Saunders # (Auto) 0.66 K/uL (0.11-0.59) H 01/23/22 03:20 Eos # (Auto) 0.00 K/uL (0-0.5) 01/23/22 03:20 Baso # (Auto) 0.01 K/uL (0-0.2) 01/23/22 03:20 Immature Gran # (Auto) 0.02 K/uL (0.00-0.02) 01/23/22 03:20 PT 9.9 Seconds (9.0-12.0) 01/22/22 20:57 INR 1.0 (0.9-1.1) 01/22/22 20:57 APTT 20.5 Seconds (21.0-31.0) L 01/22/22 20:57 PTT Ratio 0.8 01/22/22 20:57 Sodium 137 mmol/L (136-145) 01/26/22 06:51 Potassium 3.7 mmol/L (3.5-5.1) 01/26/22 06:51 Chloride 107 mmol/L (98-107) 01/26/22 06:51 Carbon Dioxide 20 mmol/L (21-32) L 01/26/22 06:51 Anion Gap 10 (3-11) 01/26/22 06:51 BUN 16 mg/dl (6-23) 01/26/22 06:51 Creatinine 0.79 mg/dl (0.6-1.4) 01/26/22 06:51 Est Cr Clr Drug Dosing 69.7 ml/min 01/26/22 06:51 Est GFR ( Amer) 98.3 ml/min 01/26/22 06:51 Est GFR (Non-Af Amer) 84.8 ml/min 01/26/22 06:51 BUN/Creatinine Ratio 20.3 (10-20) H 01/26/22 06:51 Glucose 74 mg/dl (70-99(Fasting)) 01/26/22 06:51 Estimat Average Glucose 117 mg/dl 01/22/22 20:33 Hemoglobin A1c 5.7 % (4.5-5.6) H 01/22/22 20:33 Calcium 8.4 mg/dl (8.5-10.1) L 01/26/22 06:51 Phosphorus 2.7 mg/dl (2.5-4.9) 01/26/22 06:51 Magnesium 1.9 mg/dl (1.7-2.4) 01/26/22 06:51 Total Bilirubin 0.4 mg/dl (0.2-1.0) D 01/22/22 20:57 AST 17 U/L (13-39) 01/22/22 20:57 ALT 14 U/L (7-52) 01/22/22 20:57 Alkaline Phosphatase 73 U/L (34-104) 01/22/22 20:57 Troponin I < 0.03 ng/ml (0-0.04) 01/22/22 20:57 B-Natriuretic Peptide 170 pg/ml (0-100) H 01/23/22 03:20 Total Protein 6.5 gm/dl (6.0-8.3) 01/22/22 20:57 Albumin 3.7 gm/dl (3.4-5.0) 01/22/22 20:57 Globulin 2.8 gm/dl (2.5-4.0) 01/22/22 20:57 Albumin/Globulin Ratio 1.3 (0.9-2) 01/22/22 20:57 Lipase 32 U/L (11-82) 01/22/22 20:57 Folate > 22.30 ng/ml (>5.38) 01/30/22 06:30 Urine Color Yellow 01/22/22 22:07 Urine Appearance Clear (Clear) 01/22/22 22:07 Urine pH 5.5 (4.5-7.5) 01/22/22 22:07 Ur Specific [place] > 1.045 (1.000-1.030) H 01/22/22 22:07 Urine Protein Negative (Negative) 01/22/22 22:07 Urine Glucose (UA) Negative (Negative) 01/22/22 22:07 Urine Ketones Trace (Negative) H 01/22/22 22:07 Urine Blood Negative (Negative) 01/22/22 22:07 Urine Nitrite Negative (Negative) 01/22/22 22:07 Urine Bilirubin Negative (Negative) 01/22/22 22:07 Urine Urobilinogen Negative (Negative) 01/22/22 22:07 Ur Leukocyte Esterase Negative (Negative) 01/22/22 22:07 SARS-CoV-2, RNA, NAAT NEGATIVE (NEGATIVE) 01/22/22 22:57 Impressions KUB X-Ray 01/22/22 20:33 KUB HISTORY: Generalized abdominal pain COMPARISON: Abdomen and pelvis CT 01/22/2022. FINDINGS: The bowel gas pattern is unremarkable. There are no dilated loops of small bowel to suggest an obstruction. No renal calculi. No ureteral calculi. No pneumoperitoneum or pneumatosis. Contrast within the bladder from the prior CT examination. There are small bladder diverticula present. Vascular calcifications are noted. IMPRESSION: No evidence for bowel obstruction. ACT 112: Negative or not required by law. Electronically signed by: John Kidd M.D. 01/22/2022 9:03 PM Chest X-Ray 01/26/22 12:17 XR chest 1V portable CLINICAL HISTORY: AMS, aspiration risk TECHNIQUE: Single frontal radiograph of the chest was obtained. Comparison: Comparison is made to chest one view 01/22/2022 FINDINGS: No lines and tubes are seen. The cardiomediastinal silhouette is normal. Lungs are underinflated but clear. No evidence of pleural effusion or pneumothorax. IMPRESSION: No acute chest disease. ACT 112: Negative or not required by law. Electronically signed by: Esteban Francois M.D. 01/26/2022 12:59 PM Medications Administered Current Inpatient Medications Acetaminophen (Acetaminophen 500 Mg Tab) 1,000 mg PO Q8H PRN PRN Reason: pain/fever Stop: 02/28/22 18:08 Last Admin: 01/29/22 21:10 Dose: 1,000 mg Documented by: Aspirin (Aspirin 81 Mg Ectab) [facility] [place] [facility]: 02/22/22 08:59 Last Admin: 01/30/22 08:57 Dose: 81 mg Documented by: Atorvastatin Calcium (Atorvastatin 20 Mg Tab) [facility] [place] Stop: 02/22/22 08:59 Last Admin: 01/30/22 08:57 Dose: 20 mg Documented by: Clonidine HCl (Clonidine Hcl 0.1 Mg/24 Hr Transderm Sys) 1 patch TD Q7D [facility] Stop: 02/26/22 06:44 Last Admin: 01/27/22 07:29 Dose: 1 patch Documented by: Enoxaparin Sodium (Enoxaparin Inj 40 Mg/0.4 Ml Syr) 40 mg SQ QAM [facility] Stop: 02/22/22 08:59 Last Admin: 01/30/22 08:58 Dose: 40 mg Documented by: Gabapentin (Gabapentin 100 Mg Cap) 100 mg PO TID [facility] Stop: 02/23/22 13:59 Last Admin: 01/30/22 08:57 Dose: 100 mg Documented by: Sodium Chloride (Nss) 500 mls @ 999 mls/hr IV .Q31M [facility] Stop: 01/30/22 15:00 Ipratropium [place] (Ipratropium [place] Neb Soln 0.02% 2.5 Ml Vial) 0.5 mg INH Q4H PRN PRN Reason: SOB, wheezing Stop: 02/22/22 03:01 Levalbuterol HCl (Levalbuterol 1.25mg/0.5ml Neb) 1.25 mg INH Q4H PRN PRN Reason: SOB, wheezing Stop: 02/22/22 03:01 Last Admin: 01/28/22 12:24 Dose: 1.25 mg Documented by: Lorazepam (Lorazepam 0.5 Mg Tab) 0.5 mg PO Q8H PRN PRN Reason: Anxiety/Agitation Stop: 02/28/22 18:11 Miscellaneous (Remove Clonidine Patch) 1 ea N/A CQWK [facility] Stop: 02/26/22 06:29 Last Admin: 01/27/22 09:30 Dose: 1 ea Documented by: Miscellaneous (Check Clonidine Patch Placement) 1 ea N/A QS [facility] Stop: 02/26/22 07:59 Last Admin: 01/30/22 09:15 Dose: 1 ea Documented by: Oxycodone HCl (Oxycodone Hcl Ir 5 Mg Tab (Immediate Release)) 5 mg PO Q4H PRN PRN Reason: Pain Stop: 02/06/22 00:33 Last Admin: 01/23/22 17:03 Dose: 5 mg Documented by: Thiamine HCl (Thiamine Hcl 100 Mg Tab) 100 mg PO QAM [facility] Stop: 03/01/22 08:59 Last Admin: 01/30/22 08:58 Dose: 100 mg Documented by: Umeclidinium/Vilanterol (Umeclidinium/Vilanterol 62.5/25mcg 7 Puffs/Inhaler) 1 puffs INH HS [facility] Stop: 02/22/22 20:59 Last Admin: 01/29/22 21:08 Dose: 1 puffs Documented by:
[2022-01-30] MEDS ORDERED: SODIUM CHLORIDE 0.9% 500 ML IV ONE (14:30)
[2022-01-30] MEDS: ACETAMINOPHEN 500 MG TAB PO PRN (14:53)
[2022-01-31] MEDS: CHECK CLONIDINE PATCH PLACEMENT SCH ×3 (00:08→15:50)
[2022-01-31] MEDS: UMECLIDINIUM/VILANTEROL 62.5/25MCG 7 PUFFS/INHALER INH SCH ×2 (02:08→22:03)
[2022-01-31 07:26] LABS: Basophils # (auto) 0.04 K/uL (0-0.2); Basophils % (auto) 0.6 %; Eosinophils # (auto) 0.29 K/uL (0-0.5); Eosinophils % (auto) 4.3 %; Hemoglobin 13.6 g/dL (14.0-18.0); Immature Granulocytes # (auto) 0.04 K/uL (0.00-0.02); Immature Granulocytes % (auto) 0.6 %; Lymphocytes # (auto) 2.32 K/uL (1.2-3.4); Lymphocytes % (auto) 34.4 %; Mean Corpuscular Hemoglobin 35.7 pg (25-34); Mean Corpuscular Hgb Conc 36.8 g/dL (32-36); Mean Corpuscular Volume 97.1 fL (80-100); Mean Platelet Volume 8.8 fL (7.4-10.4); Monocytes # (auto) 0.76 K/uL (0.11-0.59); Monocytes % (auto) 11.3 %; Neutrophils # (auto) 3.29 K/uL (1.4-6.5); Neutrophils % (auto) 48.8 %; Platelet Count 285 K/uL (130-400); RDW Standard Deviation 46.1 fL (36.4-46.3); Red Blood Count 3.81 M/uL (4.7-6.1); White Blood Count 6.74 K/uL (4.8-10.8)
[2022-01-31 07:48] LABS: BUN Creatinine Ratio 18.1 (10-20); Calcium 8.1 mg/dl (8.5-10.1); Creatinine Clr Calc Pharmacy 76.5 ml/min; Est GFR (African American) 102.1 ml/min; Est GFR (Non-African American) 88.1 ml/min; Magnesium 1.7 mg/dl (1.7-2.4); Phosphorus 2.8 mg/dl (2.5-4.9); Potassium 3.4 mmol/L (3.5-5.1)
[2022-01-31] MEDS: GABAPENTIN 100 MG CAP PO SCH ×3 (08:43→22:03)
[2022-01-31] MEDS: ATORVASTATIN 20 MG TAB PO SCH (08:43)
[2022-01-31] MEDS: THIAMINE HCL 100 MG TAB PO SCH (08:43)
[2022-01-31] MEDS: ACETAMINOPHEN 500 MG TAB PO PRN ×2 (08:43→14:15)
[2022-01-31] MEDS: ASPIRIN 81 MG ECTAB PO SCH (08:43)
[2022-01-31] MEDS: ENOXAPARIN INJ 40 MG/0.4 ML SYR SQ SCH (08:43)
[2022-01-31] MEDS ORDERED: POTASSIUM CHLORIDE CRTAB 20 MEQ TABCR PO ONE (08:45)
--- NOTE | 2022-01-31 14:02 | Hospitalist Progress Note ---
Date of Service January 31, 2022 Assessment & Plan (1) Left rib fracture: Plan: Pain secondary to left eighth rib fracture that is mildly displaced- improved, none at rest. Continue scheduled Tylenol, avoid narcs. Lidocaine patch was not working so this was stopped. continue gabapentin to 100mg PO TID (2) Alcohol abuse: Plan: Heavy alcohol user reporting 5-6 drinks every other day. Six days of alcohol delirium requiring significant Ativan and soft limb restraints. Now resolved and seems back to baseline. (3) Alcohol withdrawal: Plan: plan as above. (4) Smoking: Plan: Nicotine patch as needed, counseled to quit and is in contemplative phase. (5) COPD (chronic obstructive pulmonary disease): Plan: Chronic, stable, no acute wheezing. Of note steroids were given to him from the ER but have been stopped. Continue Anoro Ellipta (6) DVT prophylaxis: Plan: Lovenox Full code Disposition- Likely discharge tomorrow- home vs rehab. Reevaluated by PT today and has significantly improved from before. Update- Unable to reach Abigail over the phone Admission and Anticipated Discharge Date Admission Date: January 23, 2022 Subjective He is more awake and alert today. Oriented x4. Hard of hearing but answering questions appropriately. States the pain is controlled and improving. Denies any fever, chills, chest pain or shortness of breath, nausea or vomiting. Physical Exam Physical Exam: General: Elderly male, sitting comfortably in bed, not in distress, on room air HEENT: EOMI, MANUEL, MMM Chest: Clear breath sounds bilaterally, no wheezes or crackles CVS: Regular rate and rhythm, normal heart sounds, no murmur Abdomen: Soft, non tender, not distended, normal bowel sounds Neuro: Awake, alert, orientedx4. hard of hearing. Conversing well. Extremities: No cyanosis, clubbing or edema Results & Data Results [facility]) Vital Signs (Past 12 Hours) Vital Signs Temp Pulse Resp BP BP Pulse Ox 01/31/22 08:00 36.9 C 77 20 141/76 H 92 01/31/22 02:30 36.6 C 74 16 162/90 H 93 Laboratory Results Short CBC 01/31/22 Range/Units 06:46 WBC 6.74 (4.8-10.8) K/uL Hgb 13.6 L (14.0-18.0) g/dL Hct 37.0 L (42-52) % Plt Count 285 (130-400) K/uL BMP 01/31/22 06:46 Sodium 136 Potassium 3.4 L Chloride 108 H Carbon Dioxide 24 BUN 13 Creatinine 0.72 Glucose 99 Calcium 8.1 L Medications Administered Current Inpatient Medications Acetaminophen (Acetaminophen 500 Mg Tab) 1,000 mg PO Q8H PRN PRN Reason: pain/fever Stop: 02/28/22 18:08 Last Admin: 01/31/22 08:43 Dose: 1,000 mg Documented by: Aspirin (Aspirin 81 Mg Ectab) [facility] [place] Stop: 02/22/22 08:59 Last Admin: 01/31/22 08:43 Dose: 81 mg Documented by: Atorvastatin Calcium (Atorvastatin 20 Mg Tab) [facility] [place] Stop: 02/22/22 08:59 Last Admin: 01/31/22 08:43 Dose: 20 mg Documented by: Clonidine HCl (Clonidine Hcl 0.1 Mg/24 Hr Transderm Sys) 1 patch TD Q7D [facility] Stop: 02/26/22 06:44 Last Admin: 01/27/22 07:29 Dose: 1 patch Documented by: Enoxaparin Sodium (Enoxaparin Inj 40 Mg/0.4 Ml Syr) 40 mg SQ QAM [facility] Stop: 02/22/22 08:59 Last Admin: 01/31/22 08:43 Dose: 40 mg Documented by: Gabapentin (Gabapentin 100 Mg Cap) 100 mg PO TID [facility] Stop: 02/23/22 13:59 Last Admin: 01/31/22 08:43 Dose: 100 mg Documented by: Ipratropium [place] (Ipratropium [place] Neb Soln 0.02% 2.5 Ml Vial) 0.5 mg INH Q4H PRN PRN Reason: SOB, wheezing Stop: 02/22/22 03:01 Levalbuterol HCl (Levalbuterol 1.25mg/0.5ml Neb) 1.25 mg INH Q4H PRN PRN Reason: SOB, wheezing Stop: 02/22/22 03:01 Last Admin: 01/28/22 12:24 Dose: 1.25 mg Documented by: Lorazepam (Lorazepam 0.5 Mg Tab) 0.5 mg PO Q8H PRN PRN Reason: Anxiety/Agitation Stop: 02/28/22 18:11 Miscellaneous (Remove Clonidine Patch) 1 ea N/A CQWK [facility] Stop: 02/26/22 06:29 Last Admin: 01/27/22 09:30 Dose: 1 ea Documented by: Miscellaneous (Check Clonidine Patch Placement) 1 ea N/A QS [facility] Stop: 02/26/22 07:59 Last Admin: 01/31/22 09:27 Dose: 1 ea Documented by: Oxycodone HCl (Oxycodone Hcl Ir 5 Mg Tab (Immediate Release)) 5 mg PO Q4H PRN PRN Reason: Pain Stop: 02/06/22 00:33 Last Admin: 01/23/22 17:03 Dose: 5 mg Documented by: Thiamine HCl (Thiamine Hcl 100 Mg Tab) 100 mg PO QAM [facility] Stop: 03/01/22 08:59 Last Admin: 01/31/22 08:43 Dose: 100 mg Documented by: Umeclidinium/Vilanterol (Umeclidinium/Vilanterol 62.5/25mcg 7 Puffs/Inhaler) 1 puffs INH HS [facility] Stop: 02/22/22 20:59 Last Admin: 01/31/22 02:08 Dose: Not Given Documented by:
[2022-02-01] MEDS: GABAPENTIN 100 MG CAP PO SCH ×3 (00:22→15:03)
[2022-02-01] MEDS: CHECK CLONIDINE PATCH PLACEMENT SCH ×2 (00:22→09:57)
[2022-02-01] MEDS: ACETAMINOPHEN 500 MG TAB PO PRN (00:28)
[2022-02-01] MEDS: ASPIRIN 81 MG ECTAB PO SCH (09:57)
[2022-02-01] MEDS: ATORVASTATIN 20 MG TAB PO SCH (09:57)
[2022-02-01] MEDS: ENOXAPARIN INJ 40 MG/0.4 ML SYR SQ SCH (09:58)
[2022-02-01] MEDS: THIAMINE HCL 100 MG TAB PO SCH (09:58)
--- NOTE | 2022-02-01 13:53 | Discharge Summary ---
Date of Service February 01, 2022 Admission HPI Per Admitting Provider History obtained from patient and records. Medical history significant for COPD, hyperlipidemia, ongoing tobacco abuse. 2 nights ago, patient noted sudden onset achy left-sided under the rib pain going to the back somewhat pleuritic. No leg radiation/weakness as per patient.Usual smoker's cough symptoms. No recollection of recent trauma. Patient seen at the ER yesterday morning. CT abdomen pelvis unremarkable. Patient discharged on lidocaine patch and prednisone course for acute left flank pain. Patient returned to ER for worsening symptoms. Intractable discomfort at the ER. 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 Admission Exam Per Admitting Provider GENERAL: uncomfortable, obese, hard of hearing, no respiratory distress SKIN: Normal color, warm HEENT: [place] palpebral conjunctivae, no ptosis, moist buccal mucosa NECK : Supple, no tenderness CHEST : Decreased breath sounds, diffuse expiratory wheezes, left lateral chest wall tenderness HEART : RRR, no obvious murmurs ABDOMEN: Some distention, nontender EXTREMITIES : No LE swelling/tenderness, no other conspicuous deformities noted NEUROLOGIC : Coherent, no facial asymmetry, hard of hearing, no other gross focality Principal Diagnosis left rib fracture, alcohol abuse/withdrawal Discharge Exam General: Elderly male, sitting comfortably in bed, not in distress, on room air HEENT: EOMI, MANUEL, MMM Chest: Clear breath sounds bilaterally, no wheezes or crackles CVS: Regular rate and rhythm, normal heart sounds, no murmur Abdomen: Soft, non tender, not distended, normal bowel sounds Neuro: Awake, alert, orientedx4. hard of hearing. Conversing well. Extremities: No cyanosis, clubbing or edema Discharge Data Allergies Allergy/AdvReac Type Severity Reaction Status Date / Time buckwheat Allergy Severe throat Verified 01/22/22 09:35 swells Penicillins Allergy Unknown hives Unverified 01/22/22 09:35 Consultations 01/22/22 22:49 ED Decision to Admit Stat Hospital Course (1) Left rib fracture: Pain secondary to left eighth rib fracture that is mildly displaced- improved, none at rest. Continue Tylenol, avoid narcs. Lidocaine patch (2) Alcohol abuse: Heavy alcohol user reporting 5-6 drinks every other day. Six days of alcohol delirium requiring significant Ativan and soft limb restraints. Now resolved and back to baseline. (3) Alcohol withdrawal: resolved. (4) Smoking: Counseled to quit and is in contemplative phase. F/u with PCP if nicotine patch or other resources desired (5) COPD (chronic obstructive pulmonary disease): Chronic, stable, no acute wheezing. Of note steroids were given to him from the ER but have been stopped. Continue Anoro Ellipta (6) DVT prophylaxis: Home Health Attestation I certify that this patient is under my care and that I, or a physicians product development assistant working with me, had a face to-face encounter that meets the home health [id number] encounter requirements with this patient. The encounter with the patient was in whole, or in part, for the following medical condition, which is the primary reason for home health care (list medical condition): I certify that, based on my findings, the following services are medically necessary home health services: My clinical findings support the need for the above services because: OT Assess ADL Status and Restore Function w ADLs PT Assessment for Endurance / Balance / Strength Skilled Nsg Assessment Further, I certify that my clinical findings support that this patient is homebound (i.e. absences from home require considerable and taxing effort and are for medical reasons or muslim services or infrequently or of short duration when for other reasons) because: Certification for Home Health Services: Based on the above findings, I certify that this patient is confined to the home and needs intermittent jail care, physical therapy and/or speech therapy or continues to need occupational therapy. The patient is under my care, and I have initiated the establishment of the plan of care. This patient will be followed by a physician who will periodically review the plan of care. Total Time Total Time Spent Total Time Spent (In Minutes): 40 Discharge Plan Discharge Items Patient Disposition: Home - Home Health Services Reason For Visit: L RIB FX Discharge Diagnosis: Left rib fracture, Alcohol abuse with withdrawal Activity: Resume your previous activity Non-emergency contact: Primary Care Provider Call non-emergency contact if: your symptoms worsen and your pain is concerning for you Follow-up/Referrals: Watson Bowen MD [Primary Care Provider] - (Date & Time 02/04/2022 11:00 AM Provider Watson Bowen III, MD [facility] ) Diet: Regular Addtl Attending Provider Instructions: We strongly recommend you abstain from alcohol You can take over the counter tylenol as needed for pain. Work with the physical therapy Pending Studies at Discharge: No Stand-Alone Forms: [facility], Smoking Cessation Medications and DC Order Prescriptions: Continued atorvastatin 20 mg tablet 20 mg PO QAM RF: 0 aspirin [Aspir-81] 81 mg Tablet,Delayed Release (Dr/Ec) 81 mg PO QAM RF: 0 Anoro Ellipta 62.5-25 mcg/actuation blister with device 1 inh INHALATION HS RF: 0 lidocaine 5 % adhesive patch,medicated 1 patch TOP DAILY PRN (Reason: pain) Qty: 15 RF: 0 Discontinued prednisone 20 mg tablet See Rx Instructions .ROUTE .COMPLEX 4 Days Qty: 6 RF: 0 Discharge Orders: Discharge Order (Routine); Ordered 02/01/22 Ordered By: Robert Zavala Admission Data Admit Date/Time: 01/23/22 14:45 Attending Provider: Robert Zavala Admit Provider: Rc Tuttle Primary Care Provider: Watson Bowen Other Providers: Rc Tuttle ; Margaret Padron ; [facility]
== END 2022-02-01 15:50 | disposition home health service (06) | DRG 206 ==
LOC: 3N 20:04 → ED 20:04 → SUATTDRO 01-23 00:32 → 3N 01-23 02:36 → SUATTDRO 01-23 14:45 → 3N 01-23 18:55 → 2E 01-23 21:52 → 2S 01-29 18:25 → 3W 01-29 21:28